=== PATIENT | male | born 1965 | race Caucasian/White ===

== ENCOUNTER 2018-03-10 08:58 | Emergency (ER) | payer MEDICARE, OTHER ==
[~2018-03-10] VITALS: Ht 167.6 cm; Wt 72.0 kg
[~2018-03-10 08:58] MED LIST: CEPH500C5 PO; MUPI1OIN8 BOTHNARES
[2018-03-10] MEDS ORDERED: doxycycline hyclate 100mg tablet.DR PO STA (09:33)
[2018-03-10] MEDS ORDERED: mupirocin 2% ointment 22GM TP STA (09:33)
[2018-03-10] MEDS ORDERED: DOXY100C43 PO (09:36)
[2018-03-10 09:53] VITALS: BP 120/78
== END 2018-03-10 10:05 | disposition home or self-care (01) ==
LOC: ER 08:59
DX: S00.412A Abrasion of left ear, initial encounter (principal); S00.31XA Abrasion of nose, initial encounter; S60.415A Abrasion of left ring finger, initial encounter; L02.811 Cutaneous abscess of head [any part, except face]; E11.9 Type 2 diabetes mellitus without complications; F15.10 Other stimulant abuse, uncomplicated; Z59.0 Homelessness; Z56.0 Unemployment, unspecified; Z79.899 Other long term (current) drug therapy; X58.XXXA Exposure to other specified factors, initial encounter; Y93.89 Activity, other specified; Y92.89 Other specified places as the place of occurrence of the external cause; Y99.8 Other external cause status
CPT/HCPCS: 99283

== ENCOUNTER 2018-08-12 09:35 | Emergency (ER) | payer MEDICARE, MEDICAID ==
[~2018-08-12] VITALS: Ht 162.6 cm; Wt 73.0 kg
[~2018-08-12 09:35] MED LIST changes: -CEPH500C5 PO
[2018-08-12 09:42] VITALS: BP 145/98
[2018-08-12] MEDS ORDERED: DOXY100C43 PO (09:55)
== END 2018-08-12 10:06 | disposition home or self-care (01) ==
LOC: ER 09:36
DX: H60.11 Cellulitis of right external ear (principal); E11.9 Type 2 diabetes mellitus without complications; F17.210 Nicotine dependence, cigarettes, uncomplicated; F15.90 Other stimulant use, unspecified, uncomplicated; Z59.0 Homelessness; Z56.0 Unemployment, unspecified; Z86.14 Personal history of Methicillin resistant Staphylococcus aureus infection; Z88.6 Allergy status to analgesic agent; Z79.899 Other long term (current) drug therapy
CPT/HCPCS: 99283

== ENCOUNTER 2018-09-06 11:40 | Emergency (ER) | payer MEDICARE, MEDICAID ==
[~2018-09-06] VITALS: Ht 177.8 cm; Wt 72.7 kg
[2018-09-06 11:53] VITALS: BP 144/90
[2018-09-06] MEDS ORDERED: SULF1TAB48 PO (12:26)
== END 2018-09-06 12:34 | disposition home or self-care (01) ==
LOC: ER 11:41
DX: L03.312 Cellulitis of back [any part except buttock and flank] (principal); H60.11 Cellulitis of right external ear; E11.9 Type 2 diabetes mellitus without complications; F15.90 Other stimulant use, unspecified, uncomplicated; Z86.14 Personal history of Methicillin resistant Staphylococcus aureus infection; Z59.0 Homelessness; Z56.0 Unemployment, unspecified; Z88.1 Allergy status to other antibiotic agents
CPT/HCPCS: 99283

== ENCOUNTER 2018-12-31 14:14 | Emergency (ER) | payer MEDICARE, MEDICAID ==
[~2018-12-31] VITALS: Ht 167.6 cm; Wt 70.3 kg
[2018-12-31 15:01] LABS: CLARITY,URINE CLEAR (Clear); COLOR,URINE YELLOW (Yellow); GLUCOSE, URINE NEGATIVE (Neg); KETONES,URINE TRACE mg/dl (Neg); LEUKOCYTE ESTERASE ,URINE NEGATIVE (Neg); NITRITES, URINE NEGATIVE (Neg); OCCULT BLOOD,URINE NEGATIVE (Neg); PROTEIN,URINE NEGATIVE (Neg); UROBILINOGEN,URINE 0.2 E.U/dL (0.2-1.0)
[2018-12-31 15:04] LABS: BASOPHILS % (AUTO) 0.2 % (0-1); EOSINOPHILS # (AUTO) 0.7 X10'3 (0-0.9); EOSINOPHILS % (AUTO) 5.4 % (0-6); HEMOGLOBIN 14.7 g/dl (14.0-17.9); LYMPHOCYTES # (AUTO) 1.9 X10'3 (1.1-4.8); LYMPHOCYTES % (AUTO) 15.2 % (21-51); MEAN CORPUSCULAR HEMOGLOBIN 29.3 PG (27.0-31.0); MEAN CORPUSCULAR HGB CONC 33.4 g/dL (33.0-36.5); MEAN CORPUSCULAR VOLUME 87.8 FL (78-98); MEAN PLATELET VOLUME 7.8 FL (7.4-10.4); MONOCYTES # (AUTO) 0.4 X10'3 (0-0.9); MONOCYTES % (AUTO) 3.5 % (2-12); NEUTROPHILS # (AUTO) 9.3 X10'3 (1.8-7.7); NEUTROPHILS % (AUTO) 75.7 % (42-75); PLATELET COUNT 325 X10'3 (140-440); RED BLOOD COUNT 5.02 X10'6 (4.70-6.10); RED CELL DISTRIBUTION WIDTH 13.8 % (11.5-14.5); WHITE BLOOD COUNT 12.3 X10'3 (4.5-11.0)
[2018-12-31 15:12] LABS: UA COLLECTION TYPE VOIDED
[2018-12-31 15:19] LABS: ALANINE AMINOTRANSFERASE 42 U/L (12-78); ALBUMIN 3.6 G/DL (3.4-5.0); ALBUMIN/GLOBULIN RATIO 0.9 (1.1-1.5); ALKALINE PHOSPHATASE 87 IU/L (46-116); ANION GAP 5 (8-16); ASPARTATE AMINO TRANSFERASE 18 U/L (10-37); BILIRUBIN,TOTAL 0.3 MG/DL (0.1-1.0); BLOOD UREA NITROGEN 16 MG/DL (7-18); BUN/CREATININE RATIO 16.2 (5.4-32.0); CALCIUM 8.8 MG/DL (8.5-10.1); CHLORIDE 103 MMOL/L (99-107); CREATININE 0.99 MG/DL (0.60-1.10); GLUCOSE 131 MG/DL (70-104); SODIUM 141 MMOL/L (135-145); TOTAL CARBON DIOXIDE 32.8 MMOL/L (24-32); TOTAL PROTEIN 7.5 G/DL (6.4-8.2); eGFR 78 ML/MIN
[2018-12-31 15:26] VITALS: BP 122/87
[2018-12-31] MEDS ORDERED: METR500T PO (17:09)
== END 2018-12-31 17:19 | disposition home or self-care (01) ==
LOC: ER 14:14
DX: K52.9 Noninfective gastroenteritis and colitis, unspecified (principal); R19.7 Diarrhea, unspecified; L08.9 Local infection of the skin and subcutaneous tissue, unspecified; E11.9 Type 2 diabetes mellitus without complications; Z86.14 Personal history of Methicillin resistant Staphylococcus aureus infection; F15.90 Other stimulant use, unspecified, uncomplicated; Z88.1 Allergy status to other antibiotic agents; Z79.899 Other long term (current) drug therapy; Z59.0 Homelessness; Z56.0 Unemployment, unspecified
CPT/HCPCS: 36415; 74176; 80053; 81003; 85025; 85610; 99284

== ENCOUNTER 2019-03-23 11:07 | Emergency (ER) | payer MEDICARE, MEDICAID ==
[~2019-03-23] VITALS: Ht 170.2 cm; Wt 75.0 kg
[2019-03-23 11:27] VITALS: BP 118/86
[2019-03-23] MEDS ORDERED: HYDR-4353 PO (12:23)
== END 2019-03-23 12:28 | disposition home or self-care (01) ==
LOC: ER 11:07
DX: S39.012A Strain of muscle, fascia and tendon of lower back, initial encounter (principal); E11.9 Type 2 diabetes mellitus without complications; F17.200 Nicotine dependence, unspecified, uncomplicated; F15.90 Other stimulant use, unspecified, uncomplicated; Z56.0 Unemployment, unspecified; Z59.0 Homelessness; Z88.8 Allergy status to other drugs, medicaments and biological substances; X50.0XXA Overexertion from strenuous movement or load, initial encounter; Y93.89 Activity, other specified; Y92.89 Other specified places as the place of occurrence of the external cause; Y99.8 Other external cause status
CPT/HCPCS: 99283

== ENCOUNTER 2019-12-19 11:39 | Emergency (ER) | payer MEDICARE, MEDICAID ==
[~2019-12-19] VITALS: Ht 167.6 cm; Wt 67.0 kg
[2019-12-19] MEDS ORDERED: DEXT15DR7 EACHEYE (12:22)
[2019-12-19 12:27] VITALS: BP 138/82
== END 2019-12-19 12:28 | disposition home or self-care (01) ==
LOC: ER 11:39
DX: S61.204A Unspecified open wound of right ring finger without damage to nail, initial encounter (principal); E11.9 Type 2 diabetes mellitus without complications; F32.9 Major depressive disorder, single episode, unspecified; F20.9 Schizophrenia, unspecified; F15.90 Other stimulant use, unspecified, uncomplicated; F10.99 Alcohol use, unspecified with unspecified alcohol-induced disorder; Z60.2 Problems related to living alone; Z56.0 Unemployment, unspecified; Z86.14 Personal history of Methicillin resistant Staphylococcus aureus infection; Z88.8 Allergy status to other drugs, medicaments and biological substances; Z79.899 Other long term (current) drug therapy; X50.1XXA Overexertion from prolonged static or awkward postures, initial encounter; Y93.89 Activity, other specified; Y92.89 Other specified places as the place of occurrence of the external cause; Y99.8 Other external cause status; Y90.9 Presence of alcohol in blood, level not specified
CPT/HCPCS: 99283

== ENCOUNTER 2020-05-26 12:14 | Emergency (ER) | payer MEDICAID, MEDICARE ==
[~2020-05-26] VITALS: Ht 167.6 cm; Wt 68.2 kg
[~2020-05-26 12:14] MED LIST changes: +DEXT15DR7 EACHEYE
[2020-05-26] MEDS ORDERED: normal saline 1000ML IV soln IVB ONE ×2 (14:40→15:35)
[2020-05-26 15:14] LABS: BASOPHILS # (AUTO) 0.1 X10'3 (0-0.2); BASOPHILS % (AUTO) 0.7 % (0-1); EOSINOPHILS # (AUTO) 0.2 X10'3 (0-0.9); EOSINOPHILS % (AUTO) 2.4 % (0-6); HEMATOCRIT 38.5 % (42.0-52.0); HEMOGLOBIN 12.9 g/dl (14.0-17.9); LYMPHOCYTES # (AUTO) 1.8 X10'3 (1.1-4.8); LYMPHOCYTES % (AUTO) 24.4 % (21-51); MEAN CORPUSCULAR HGB CONC 33.5 g/dL (33.0-36.5); MEAN CORPUSCULAR VOLUME 89.5 FL (78-98); MEAN PLATELET VOLUME 8.5 FL (7.4-10.4); MONOCYTES # (AUTO) 0.6 X10'3 (0-0.9); MONOCYTES % (AUTO) 7.8 % (2-12); NEUTROPHILS # (AUTO) 4.7 X10'3 (1.8-7.7); NEUTROPHILS % (AUTO) 64.7 % (42-75); PLATELET COUNT 234 X10'3 (140-440); RED CELL DISTRIBUTION WIDTH 12.9 % (11.5-14.5); WHITE BLOOD COUNT 7.2 X10'3 (4.5-11.0)
[2020-05-26] MEDS ORDERED: polyethylene glycol 3350 17gm powd pack PO STA (15:28)
[2020-05-26 15:30] LABS: ALANINE AMINOTRANSFERASE 23 U/L (12-78); ALBUMIN 3.2 G/DL (3.4-5.0); ALKALINE PHOSPHATASE 51 IU/L (46-116); ANION GAP 7 (8-16); ASPARTATE AMINO TRANSFERASE 22 U/L (10-37); BILIRUBIN,TOTAL 0.3 MG/DL (0.1-1.0); BLOOD UREA NITROGEN 23 MG/DL (7-18); BUN/CREATININE RATIO 29.5 (5.4-32.0); CALCIUM 8.8 MG/DL (8.5-10.1); CHLORIDE 108 MMOL/L (99-107); CREATININE 0.78 MG/DL (0.60-1.10); GLUCOSE 88 MG/DL (70-104); POTASSIUM 3.9 MMOL/L (3.5-5.1); SODIUM 143 MMOL/L (135-145); TOTAL CARBON DIOXIDE 27.8 MMOL/L (24-32); TOTAL PROTEIN 6.4 G/DL (6.4-8.2); eGFR > 90 ML/MIN
[2020-05-26] MEDS ORDERED: docusate sod 100mg capsule PO ONE (15:30)
[2020-05-26 15:43] LABS: CLARITY,URINE CLEAR (Clear); COLOR,URINE YELLOW (Yellow); GLUCOSE, URINE NEGATIVE (Neg); KETONES,URINE NEGATIVE (Neg); LEUKOCYTE ESTERASE ,URINE NEGATIVE (Neg); NITRITES, URINE NEGATIVE (Neg); OCCULT BLOOD,URINE NEGATIVE (Neg); PH,URINE 5.5 (4.8-8.0); PROTEIN,URINE NEGATIVE (Neg); UA COLLECTION TYPE URINAL; UROBILINOGEN,URINE 0.2 E.U/dL (0.2-1.0)
[2020-05-26] MEDS ORDERED: NALO4SPR NS (16:19)
[2020-05-26] MEDS ORDERED: DOCU100C40 PO (16:19)
[2020-05-26] MEDS ORDERED: POLY17PO10 PO (16:19)
[2020-05-26 16:30] VITALS: BP 118/76
== END 2020-05-26 16:31 | disposition home or self-care (01) ==
LOC: ER 12:15
DX: K59.00 Constipation, unspecified (principal); E11.9 Type 2 diabetes mellitus without complications; F32.9 Major depressive disorder, single episode, unspecified; F15.90 Other stimulant use, unspecified, uncomplicated; F11.90 Opioid use, unspecified, uncomplicated; F17.200 Nicotine dependence, unspecified, uncomplicated; Z86.14 Personal history of Methicillin resistant Staphylococcus aureus infection; Z56.0 Unemployment, unspecified; Z59.0 Homelessness; Z88.8 Allergy status to other drugs, medicaments and biological substances; Z79.899 Other long term (current) drug therapy
CPT/HCPCS: 36415; 74176; 80053; 81003; 85025; 99284; J7030

== ENCOUNTER 2020-09-04 16:13 | Emergency (ER) | payer MEDICARE, OTHER ==
[~2020-09-04] VITALS: Ht 167.6 cm; Wt 68.2 kg
[~2020-09-04 16:13] MED LIST changes: +DOCU100C40 PO; +NALO4SPR NS
[2020-09-04 16:19] VITALS: BP 146/92
[2020-09-04] MEDS ORDERED: SULF1TAB49 PO (16:32)
[2020-09-04] MEDS ORDERED: CEPH500C5 PO (16:32)
== END 2020-09-04 16:41 | disposition home or self-care (01) ==
LOC: ER 16:15
DX: S80.811A Abrasion, right lower leg, initial encounter (principal); L02.415 Cutaneous abscess of right lower limb; E11.9 Type 2 diabetes mellitus without complications; F32.9 Major depressive disorder, single episode, unspecified; F20.9 Schizophrenia, unspecified; F15.90 Other stimulant use, unspecified, uncomplicated; F11.90 Opioid use, unspecified, uncomplicated; Z86.14 Personal history of Methicillin resistant Staphylococcus aureus infection; Z60.2 Problems related to living alone; Z59.0 Homelessness; Z56.0 Unemployment, unspecified; Z88.8 Allergy status to other drugs, medicaments and biological substances; Z79.899 Other long term (current) drug therapy; X58.XXXA Exposure to other specified factors, initial encounter; Y93.89 Activity, other specified; Y92.89 Other specified places as the place of occurrence of the external cause; Y99.8 Other external cause status
CPT/HCPCS: 99283

== ENCOUNTER 2021-05-12 09:48 | Emergency (ER) | payer OTHER ==
[~2021-05-12] VITALS: Ht 172.7 cm; Wt 142.7 kg
[2021-05-12 09:58] VITALS: BP 162/99
== END 2021-05-12 10:41 | disposition home or self-care (01) ==
LOC: ER 09:50
DX: N48.1 Balanitis (principal); E11.9 Type 2 diabetes mellitus without complications; F15.90 Other stimulant use, unspecified, uncomplicated; Z86.14 Personal history of Methicillin resistant Staphylococcus aureus infection; Z88.8 Allergy status to other drugs, medicaments and biological substances; Z79.899 Other long term (current) drug therapy; Z59.0 Homelessness; Z56.0 Unemployment, unspecified; Z72.89 Other problems related to lifestyle
CPT/HCPCS: 99281

== ENCOUNTER 2021-07-12 10:22 | Emergency (ER) | payer OTHER ==
[~2021-07-12] VITALS: Ht 172.7 cm; Wt 77.4 kg
[2021-07-12 10:39] VITALS: BP 148/98
[2021-07-12] MEDS ORDERED: PRED20TA PO (10:54)
[2021-07-12] MEDS ORDERED: DIPH25TA62 PO (10:54)
[2021-07-12] MEDS ORDERED: diphenhydrAMINE 25mg capsule PO ONE (10:55)
[2021-07-12] MEDS ORDERED: predniSONE 20 mg tablet PO ONE (10:55)
== END 2021-07-12 11:14 | disposition home or self-care (01) ==
LOC: ER 10:22
DX: T63.441A Toxic effect of venom of bees, accidental (unintentional), initial encounter (principal); E11.9 Type 2 diabetes mellitus without complications; F32.9 Major depressive disorder, single episode, unspecified; F20.9 Schizophrenia, unspecified; F15.90 Other stimulant use, unspecified, uncomplicated; F11.90 Opioid use, unspecified, uncomplicated; Z86.14 Personal history of Methicillin resistant Staphylococcus aureus infection; Z72.89 Other problems related to lifestyle; Z60.2 Problems related to living alone; Z56.0 Unemployment, unspecified; Z59.0 Homelessness; Z88.1 Allergy status to other antibiotic agents; Z79.899 Other long term (current) drug therapy; Y92.89 Other specified places as the place of occurrence of the external cause
CPT/HCPCS: 99283; J7512; Q0163

== ENCOUNTER 2021-08-03 09:16 | Emergency (ER) | payer OTHER ==
[~2021-08-03] VITALS: Ht 170.2 cm; Wt 68.2 kg
[~2021-08-03 09:16] MED LIST changes: +DIPH25TA62 PO
[2021-08-03 09:43] VITALS: BP 155/95
[2021-08-03] MEDS ORDERED: AMOX-422 PO (09:47)
[2021-08-03] MEDS ORDERED: IBUP-1984 PO (09:47)
== END 2021-08-03 09:54 | disposition home or self-care (01) ==
LOC: ER 09:17
DX: H66.91 Otitis media, unspecified, right ear (principal); E11.9 Type 2 diabetes mellitus without complications; F15.90 Other stimulant use, unspecified, uncomplicated; Z86.14 Personal history of Methicillin resistant Staphylococcus aureus infection; Z72.89 Other problems related to lifestyle; Z56.0 Unemployment, unspecified; Z59.0 Homelessness; Z88.8 Allergy status to other drugs, medicaments and biological substances; Z79.2 Long term (current) use of antibiotics; Z79.899 Other long term (current) drug therapy
CPT/HCPCS: 99283

== ENCOUNTER 2022-01-27 11:36 | Inpatient (IN) | payer OTHER ==
[~2022-01-27] VITALS: Ht 177.8 cm; Wt 77.3 kg
[2022-01-27] MEDS ORDERED: CefTRIAXone 2gm/D5W 50ml BAG 50 ML IV ONE (11:55)
[2022-01-27 12:49] LABS: ALANINE AMINOTRANSFERASE 29 U/L (12-78); ALBUMIN 3.1 G/DL (3.4-5.0); ALBUMIN/GLOBULIN RATIO 0.8 (1.1-1.5); ALKALINE PHOSPHATASE 60 IU/L (46-116); ANION GAP 6 (8-16); ASPARTATE AMINO TRANSFERASE 20 U/L (10-37); BILIRUBIN,TOTAL 0.3 MG/DL (0.1-1.0); BLOOD UREA NITROGEN 38 MG/DL (7-18); BUN/CREATININE RATIO 31.1 (5.4-32.0); CALCIUM 9.3 MG/DL (8.5-10.1); CHLORIDE 104 MMOL/L (99-107); CREATININE 1.22 MG/DL (0.60-1.10); GLUCOSE 250 MG/DL (70-104); MAGNESIUM 1.8 MG/DL (1.5-2.4); POTASSIUM 4.7 MMOL/L (3.5-5.1); SODIUM 139 MMOL/L (135-145); TOTAL CARBON DIOXIDE 28.6 MMOL/L (24-32); TOTAL PROTEIN 7.1 G/DL (6.4-8.2); eGFR 61 ML/MIN
[2022-01-27 12:50] LABS: ETHANOL < 0.010 GM/DL (0.0-0.010)
[2022-01-27 12:51] LABS: HEMOGLOBIN 13.7 g/dl (14.0-17.9)
[2022-01-27 12:52] LABS: HEMATOCRIT 41.7 % (42.0-52.0); MEAN CORPUSCULAR HEMOGLOBIN 27.1 PG (27.0-31.0); MEAN CORPUSCULAR HGB CONC 32.8 g/dL (33.0-36.5); MEAN CORPUSCULAR VOLUME 82.7 FL (78-98); MEAN PLATELET VOLUME 7.8 FL (7.4-10.4); PLATELET COUNT 346 X10'3 (140-440); RED BLOOD COUNT 5.04 X10'6 (4.70-6.10); RED CELL DISTRIBUTION WIDTH 14.5 % (11.5-14.5); WHITE BLOOD COUNT 2.8 X10'3 (4.5-11.0)
[2022-01-27 13:18] LABS: TOTAL CELLS COUNTED 100
[2022-01-27 13:19] LABS: PLATELET ESTIMATE NORMAL
[2022-01-27 13:20] LABS: GIANT PLATELET FEW
[2022-01-27 13:37] LABS: ABG BASE EXCESS -0.2 mmol/L (-2.0-2.0); ABG HCO3 25.9 mmol/L (22.0-26.0); ABG OXYGEN SATURATION 95.4 % (94-97); ABG PCO2 (T) 47.6 mmHg (35.0-48.0); ABG PO2 (T) 81.7 mmHg (75.0-100.0); ALLEN'S TEST Modified; FCOHb 1.2 % (0.0-3.9); FLOW 15 L/min; FMetHb 0.2 % (0.0-1.5); FO2Hb 94.1 % (94-97); TOTAL HEMOGLOBIN 13.8 G/dl (14.0-18.0)
[2022-01-27] MEDS ORDERED: normal saline 1000ML IV soln IV ONE (13:50)
[2022-01-27] MEDS ORDERED: potassium CL 10mEq/100ml bag 100 ML IV PRN (14:25)
[2022-01-27] MEDS ORDERED: ondansetron/PF 4mg/2ml inj IV PRN (14:25)
[2022-01-27] MEDS ORDERED: magnesium 4gm in 100ml NS 100 ML IV PRN (14:25)
[2022-01-27] MEDS ORDERED: potassium Cl 20 mEq SR tablet PO PRN ×2 (14:25)
[2022-01-27] MEDS ORDERED: magnesium 2GM in 50ml NS 50 ML IV PRN (14:25)
[2022-01-27] MEDS: normal saline 1000ml 1,000 ML IV SCH (14:25)
[2022-01-27] MEDS ORDERED: magnesium Cl slow-release 64mg tablet PO PRN (14:25)
[2022-01-27] MEDS ORDERED: acetaminophen 325mg tablet PO PRN ×2 (14:25)
[2022-01-27 15:48] LABS: URINE AMPHETAMINE SCREEN POSITIVE (Neg); URINE BARBITUATE SCREEN NEGATIVE (Neg); URINE BENZODIAZEPINES SCREEN NEGATIVE (Neg); URINE CANNABINOID SCREEN NEGATIVE (Neg); URINE COCAINE SCREEN NEGATIVE (Neg); URINE METHADONE SCREEN NEGATIVE (Neg); URINE OPIATE SCREEN NEGATIVE (Neg); URINE PHENCYCLIDINE SCREEN NEGATIVE (Neg)
[2022-01-27] MEDS ORDERED: NO HOME MEDS (15:51)
[2022-01-27 15:53] LABS: CLARITY,URINE CLEAR (Clear); COLOR,URINE YELLOW (Yellow); GLUCOSE, URINE 250 mg/dl (Neg); KETONES,URINE NEGATIVE (Neg); LEUKOCYTE ESTERASE ,URINE NEGATIVE (Neg); NITRITES, URINE NEGATIVE (Neg); OCCULT BLOOD,URINE NEGATIVE (Neg); PROTEIN,URINE NEGATIVE (Neg); UA COLLECTION TYPE URINAL; UROBILINOGEN,URINE 0.2 E.U/dL (0.2-1.0)
[2022-01-27] MEDS ORDERED: MESSAGE TO PHARMACY PO ONE (17:20)
[2022-01-27] MEDS ORDERED: dextrose 50%-water 50ml dispensing syringe IV PRN ×2 (17:20)
[2022-01-27] MEDS ORDERED: DEXTROSE 15 GM of carb/4 tabs (each vial/BOTTLE has 4 tablets) PO PRN ×2 (17:20)
[2022-01-27] MEDS ORDERED: glucagon, human recombinant 1mg kit SUBCUT PRN (17:20)
[2022-01-27] MEDS ORDERED: insulin Lispro (HumaLOG) vial - multi-dose SQ SCH (17:20)
[2022-01-27] MEDS: K and/or MAG REPLACEMENT MC SCH (20:00)
--- NOTE | 2022-01-27 20:08 | NUR ---
Patient continues to remove oxygen saturation probe and nasal cannula. Patient desat's into the low 80's when off. Patient has been continually reminded to keep both pieces of equipment on.
[2022-01-27 21:00] VITALS: BP 124/79
[2022-01-27] MEDS ORDERED: temazepam 15mg capsule PO PRN (21:00)
[2022-01-27] MEDS: insulin glargine (Lantus) pen - multi-dose SQ SCH (21:00)
--- NOTE | 2022-01-27 21:01 | NUR ---
Received report from NATHAN Hopson. Patient arrived to unit with lose change, and a card, not credit. Pants, to shirts, and socks. Patient walked from [facility] to bed
[2022-01-27] MEDS: heparin, porcine 5000 units/ml vial SQ SCH (21:17)
[2022-01-28 00:22] VITALS: BP 125/67
--- NOTE | 2022-01-28 06:30 | NUR ---
Patient in room [facility]. I have received report from NATHAN Harley and had the opportunity to ask questions and assume patient care.
--- NOTE | 2022-01-28 06:31 | NUR ---
I agree with Travel nurse Ramila charting, and report given to Shobha
[2022-01-28 06:37] LABS: BASOPHILS % (AUTO) 0.2 % (0-1); EOSINOPHILS % (AUTO) 0.3 % (0-6); HEMATOCRIT 34.3 % (42.0-52.0); HEMOGLOBIN 11.3 g/dl (14.0-17.9); LYMPHOCYTES # (AUTO) 1.1 X10'3 (1.1-4.8); LYMPHOCYTES % (AUTO) 7.8 % (21-51); MEAN CORPUSCULAR HGB CONC 32.9 g/dL (33.0-36.5); MEAN CORPUSCULAR VOLUME 82.1 FL (78-98); MEAN PLATELET VOLUME 8.1 FL (7.4-10.4); MONOCYTES # (AUTO) 0.5 X10'3 (0-0.9); MONOCYTES % (AUTO) 3.2 % (2-12); NEUTROPHILS # (AUTO) 12.7 X10'3 (1.8-7.7); NEUTROPHILS % (AUTO) 88.5 % (42-75); PLATELET COUNT 277 X10'3 (140-440); RED BLOOD COUNT 4.18 X10'6 (4.70-6.10); RED CELL DISTRIBUTION WIDTH 14.4 % (11.5-14.5); WHITE BLOOD COUNT 14.3 X10'3 (4.5-11.0)
[2022-01-28 07:00] VITALS: BP 133/68
[2022-01-28 07:16] LABS: ALANINE AMINOTRANSFERASE 25 U/L (12-78); ALBUMIN 2.5 G/DL (3.4-5.0); ALBUMIN/GLOBULIN RATIO 0.6 (1.1-1.5); ALKALINE PHOSPHATASE 42 IU/L (46-116); ANION GAP 9 (8-16); ASPARTATE AMINO TRANSFERASE 34 U/L (10-37); BILIRUBIN,TOTAL 0.6 MG/DL (0.1-1.0); BLOOD UREA NITROGEN 23 MG/DL (7-18); BUN/CREATININE RATIO 26.1 (5.4-32.0); CALCIUM 8.6 MG/DL (8.5-10.1); CHLORIDE 105 MMOL/L (99-107); CREATININE 0.88 MG/DL (0.60-1.10); GLUCOSE 116 MG/DL (70-104); POTASSIUM 3.9 MMOL/L (3.5-5.1); SODIUM 138 MMOL/L (135-145); TOTAL CARBON DIOXIDE 23.8 MMOL/L (24-32); TOTAL PROTEIN 6.9 G/DL (6.4-8.2); eGFR 89 ML/MIN
[2022-01-28] MEDS: azithromycin/NS 500mg/250ml 250 ML IV SCH (07:27)
[2022-01-28] MEDS: heparin, porcine 5000 units/ml vial SQ SCH ×2 (07:27→21:23)
[2022-01-28] MEDS: CefTRIAXone 2gm/D5W 50ml BAG 50 ML IV SCH (07:27)
[2022-01-28] MEDS: K and/or MAG REPLACEMENT MC SCH ×2 (08:00→20:00)
[2022-01-28] MEDS: normal saline 1000ml 1,000 ML IV SCH (10:25)
[2022-01-28] MEDS: VANCOMYCIN 1GM/200ML IVPB 200 ML IV SCH ×2 (10:40→21:23)
--- NOTE | 2022-01-28 11:21 | NUR ---
Cardiac consult: Likely intended to be DM consult given no significant cardiac PMH though pt with T2DM which is well controlled with A1c 7.0%. Per physical assessment pt confused and A/O x 3 and a poor historian per H&P. Pt sleeping upon RD arrival. Written DM education with RD contact information placed in patient's chart. Will remain available. Addendum: 01/28/22 at [address] Amended: Links added.
[2022-01-28 12:00] VITALS: BP 122/72
[2022-01-28] MEDS ORDERED: pneumococcal 23-VAL P-sac vacc 25 mcg/0.5ml vial IMVAC ONE (13:20)
[2022-01-28] MEDS ORDERED: FLU VACC QS2021-22(6MOS UP)/PF 60 MCG/0.5 ML SYRINGE IM ONE (13:25)
[2022-01-28] MEDS ORDERED: COVID-19 VAC, TRIS(PFIZER)/PF 30 MCG/0.3 ML VIAL IMVAC ONE (13:50)
[2022-01-28 18:00] VITALS: BP 127/91
--- NOTE | 2022-01-28 18:26 | NUR ---
Problems reprioritized. Patient report given, questions answered & plan of care reviewed with NATHAN EdwardsT.
--- NOTE | 2022-01-28 18:50 | NUR ---
Patient in room [facility]. I have received report from NATHAN Yeager and had the opportunity to ask questions and assume patient care.
[2022-01-28] MEDS: insulin glargine (Lantus) pen - multi-dose SQ SCH (21:00)
[2022-01-29 00:02] VITALS: BP 163/99
[2022-01-29] MEDS: normal saline 1000ml 1,000 ML IV SCH (01:47)
[2022-01-29 06:16] LABS: BASOPHILS % (AUTO) 0.2 % (0-1); EOSINOPHILS # (AUTO) 0.2 X10'3 (0-0.9); EOSINOPHILS % (AUTO) 1.2 % (0-6); HEMATOCRIT 32.6 % (42.0-52.0); HEMOGLOBIN 10.7 g/dl (14.0-17.9); LYMPHOCYTES # (AUTO) 1.3 X10'3 (1.1-4.8); LYMPHOCYTES % (AUTO) 7.3 % (21-51); MEAN CORPUSCULAR HEMOGLOBIN 26.9 PG (27.0-31.0); MEAN CORPUSCULAR HGB CONC 32.9 g/dL (33.0-36.5); MEAN CORPUSCULAR VOLUME 81.5 FL (78-98); MONOCYTES # (AUTO) 0.6 X10'3 (0-0.9); MONOCYTES % (AUTO) 3.4 % (2-12); NEUTROPHILS # (AUTO) 15.2 X10'3 (1.8-7.7); NEUTROPHILS % (AUTO) 87.9 % (42-75); PLATELET COUNT 271 X10'3 (140-440); RED BLOOD COUNT 3.99 X10'6 (4.70-6.10); RED CELL DISTRIBUTION WIDTH 14.4 % (11.5-14.5); WHITE BLOOD COUNT 17.3 X10'3 (4.5-11.0)
--- NOTE | 2022-01-29 06:21 | NUR ---
Problems reprioritized. Patient report given, questions answered & plan of care reviewed with NATHAN Hernandez.
[2022-01-29 06:36] LABS: ALANINE AMINOTRANSFERASE 23 U/L (12-78); ALBUMIN 2.4 G/DL (3.4-5.0); ALBUMIN/GLOBULIN RATIO 0.5 (1.1-1.5); ALKALINE PHOSPHATASE 54 IU/L (46-116); ANION GAP 9 (8-16); ASPARTATE AMINO TRANSFERASE 34 U/L (10-37); BILIRUBIN,TOTAL 0.4 MG/DL (0.1-1.0); BLOOD UREA NITROGEN 15 MG/DL (7-18); BUN/CREATININE RATIO 19.5 (5.4-32.0); CALCIUM 8.4 MG/DL (8.5-10.1); CHLORIDE 103 MMOL/L (99-107); CREATININE 0.77 MG/DL (0.60-1.10); GLUCOSE 103 MG/DL (70-104); SODIUM 137 MMOL/L (135-145); TOTAL CARBON DIOXIDE 25.3 MMOL/L (24-32); TOTAL PROTEIN 7.1 G/DL (6.4-8.2); eGFR > 90 ML/MIN
[2022-01-29 06:37] LABS: POTASSIUM 3.7 MMOL/L (3.5-5.1)
[2022-01-29] MEDS: heparin, porcine 5000 units/ml vial SQ SCH ×2 (07:16→20:51)
[2022-01-29] MEDS: azithromycin/NS 500mg/250ml 250 ML IV SCH (07:16)
[2022-01-29] MEDS: K and/or MAG REPLACEMENT MC SCH ×2 (07:21→20:00)
[2022-01-29 08:00] VITALS: BP 166/95
[2022-01-29] MEDS: CefTRIAXone 2gm/D5W 50ml BAG 50 ML IV SCH (08:00)
[2022-01-29] MEDS: VANCOMYCIN 1GM/200ML IVPB 200 ML IV SCH ×2 (10:52→21:50)
--- NOTE | 2022-01-29 11:06 | NUR ---
PAGER ID: [phone] MESSAGE: REKHA RE:Sharon/FADI PATIENT B/P IS 195/101, 193/98 AND I TOOK IT MANUAL IT IS 190/92. DENIED PAIN, NO DITRESS/SOB NATHAN KOTHARI
[2022-01-29] MEDS ORDERED: hydrALAZINE 20mg/ml inj. IV ONE ×2 (11:30→23:00)
--- NOTE | 2022-01-29 11:30 | NUR ---
HI B/P,ORDER RECEIVED FOR HYDRALAZINE 10MG IV. MED ADMINISTERED PRESCRIBED.
[2022-01-29 12:21] VITALS: BP 160/82
--- NOTE | 2022-01-29 15:29 | NUR ---
PATIENT IS POSITIVE FOR MRSA (NARES). notified
--- NOTE | 2022-01-29 18:15 | NUR ---
Patient in room [facility]. I have received report from NATHAN Stauffer and had the opportunity to ask questions and assume patient care.
--- NOTE | 2022-01-29 18:29 | NUR ---
óscar reprioritized. Patient report given, questions answered & plan of care reviewed with VINNIE EVANS.
[2022-01-29 20:00] VITALS: BP_SYST 147; BP_SYST 150; BP_DIAS 93; BP_DIAS 95
[2022-01-29] MEDS: metoprolol tartrate 12.5mg (1/2 tablet) PO SCH (20:50)
[2022-01-29] MEDS: insulin glargine (Lantus) pen - multi-dose SQ SCH (21:00)
[2022-01-29] MEDS ORDERED: VANCOMYCIN LEVEL IV ONE (21:30)
[2022-01-30] VITALS: BP 175/91
[2022-01-30] MEDS: normal saline 1000ml 1,000 ML IV SCH (01:25)
[2022-01-30 06:10] LABS: ALANINE AMINOTRANSFERASE 21 U/L (12-78); ALBUMIN 2.3 G/DL (3.4-5.0); ALBUMIN/GLOBULIN RATIO 0.5 (1.1-1.5); ALKALINE PHOSPHATASE 56 IU/L (46-116); ANION GAP 9 (8-16); ASPARTATE AMINO TRANSFERASE 20 U/L (10-37); BILIRUBIN,TOTAL 0.3 MG/DL (0.1-1.0); BLOOD UREA NITROGEN 16 MG/DL (7-18); BUN/CREATININE RATIO 20.5 (5.4-32.0); CALCIUM 8.1 MG/DL (8.5-10.1); CHLORIDE 106 MMOL/L (99-107); CREATININE 0.78 MG/DL (0.60-1.10); GLUCOSE 109 MG/DL (70-104); POTASSIUM 3.6 MMOL/L (3.5-5.1); SODIUM 139 MMOL/L (135-145); TOTAL CARBON DIOXIDE 23.7 MMOL/L (24-32); TOTAL PROTEIN 6.6 G/DL (6.4-8.2); eGFR > 90 ML/MIN
--- NOTE | 2022-01-30 06:46 | NUR ---
Problems reprioritized. Patient report given, questions answered & plan of care reviewed with NATHAN Patel.
[2022-01-30 07:46] LABS: BASOPHILS % (AUTO) 0.3 % (0-1); EOSINOPHILS # (AUTO) 0.2 X10'3 (0-0.9); EOSINOPHILS % (AUTO) 1.3 % (0-6); HEMATOCRIT 33.5 % (42.0-52.0); HEMOGLOBIN 11.4 g/dl (14.0-17.9); LYMPHOCYTES % (AUTO) 8.1 % (21-51); MEAN CORPUSCULAR HEMOGLOBIN 27.3 PG (27.0-31.0); MEAN CORPUSCULAR HGB CONC 34.1 g/dL (33.0-36.5); MEAN CORPUSCULAR VOLUME 80.2 FL (78-98); MEAN PLATELET VOLUME 7.8 FL (7.4-10.4); MONOCYTES # (AUTO) 0.6 X10'3 (0-0.9); MONOCYTES % (AUTO) 4.7 % (2-12); NEUTROPHILS % (AUTO) 85.6 % (42-75); PLATELET COUNT 307 X10'3 (140-440); RED BLOOD COUNT 4.18 X10'6 (4.70-6.10); RED CELL DISTRIBUTION WIDTH 13.7 % (11.5-14.5); WHITE BLOOD COUNT 12.9 X10'3 (4.5-11.0)
[2022-01-30 08:00] VITALS: BP 165/94
[2022-01-30] MEDS: CefTRIAXone 2gm/D5W 50ml BAG 50 ML IV SCH (08:00)
[2022-01-30] MEDS: K and/or MAG REPLACEMENT MC SCH (08:00)
[2022-01-30] MEDS: metoprolol tartrate 12.5mg (1/2 tablet) PO SCH (08:01)
[2022-01-30] MEDS: heparin, porcine 5000 units/ml vial SQ SCH (08:03)
[2022-01-30] MEDS: azithromycin/NS 500mg/250ml 250 ML IV SCH (09:15)
[2022-01-30] MEDS ORDERED: iohexol 350MG/ML 100ml bottle IV ONE (10:31)
[2022-01-30 11:00] VITALS: BP 156/89
[2022-01-30] MEDS: VANCOMYCIN 1GM/200ML IVPB 200 ML IV SCH (11:12)
[2022-01-30] MEDS ORDERED: PRED20TA PO (12:49)
[2022-01-30] MEDS ORDERED: LOP12.5T PO (12:49)
[2022-01-30] MEDS ORDERED: LEVO500T90 PO (12:49)
[2022-01-30] MEDS ORDERED: METF-436 PO (12:49)
[2022-01-30] MEDS ORDERED: ALBU8HFA PO (12:49)
--- NOTE | 2022-01-30 13:20 | NUR ---
Patient discharged. Homeless, given bus pass and states he will hop picker perscriptions at pharmacy and will follow up with pcp. All belongings taken, patient unable to find shoes, he may not have come in with them, i am unsure at this time. Patient walked to front door for discharge and released. He was alert, oriented and appropriate at time of discharge and on room air with no distress. Patient states understanding of all discharge information. No meds in pharmacy. Addendum: 01/30/22 at 1412 by Amanda Read RN, RN and 2x iv's removed.
[2022-01-30] MEDS ORDERED: VANCOmycin 1250MG/NS 250ml Bag 250 ML IV SCH (23:00)
[2022-02-01] MEDS ORDERED: VANCOMYCIN LEVEL IV ONE (10:30)
== END 2022-01-30 13:20 | disposition home or self-care (01) | DRG 871 ==
LOC: ER 11:37 → ED HOLD 14:33 → EDBEDREQ 19:55 → SUR 3N 20:40
PROVIDERS: ADMIT Internal Medicine; ATTEND Internal Medicine
PROC: B32T1ZZ Computerized Tomography (CT Scan) of Left Pulmonary Artery using Low Osmolar Contrast (ICD-10-PCS; principal; 2022-01-30)
PROC: B3201ZZ Computerized Tomography (CT Scan) of Thoracic Aorta using Low Osmolar Contrast (ICD-10-PCS; 2022-01-30)
PROC: B32S1ZZ Computerized Tomography (CT Scan) of Right Pulmonary Artery using Low Osmolar Contrast (ICD-10-PCS; 2022-01-30)
DX: A41.9 Sepsis, unspecified organism (principal); J18.9 Pneumonia, unspecified organism; J96.00 Acute respiratory failure, unspecified whether with hypoxia or hypercapnia; F15.10 Other stimulant abuse, uncomplicated; E11.9 Type 2 diabetes mellitus without complications; I10 Essential (primary) hypertension; Z20.822 Contact with and (suspected) exposure to COVID-19; F20.9 Schizophrenia, unspecified; F32.A Depression, unspecified; Z86.14 Personal history of Methicillin resistant Staphylococcus aureus infection; Z59.00 Homelessness unspecified; Z88.8 Allergy status to other drugs, medicaments and biological substances; Z56.0 Unemployment, unspecified
CPT/HCPCS: 36415; 36600; 71045; 71275; 80053; 80202; 80305; 80320; 81003; 82803; 82948; 83036; 83605; 83735; 84145; 85007; 85018; 85025; 87040; 87077; 87081; 87186; 87635; 90732; 93005; 93306; 96361; 96365; 99285; C9803; G0378; J0360; J0456; J0696; J1644; J1815; J3370; J7030; Q9967

== ENCOUNTER 2022-03-28 06:26 | Emergency (ER) | payer MEDICARE, OTHER ==
[~2022-03-28] VITALS: Ht 177.8 cm; Wt 77.1 kg
[~2022-03-28 06:26] MED LIST changes: -DEXT15DR7 EACHEYE; -DIPH25TA62 PO; -DOCU100C40 PO; +LOP12.5T PO; +METF-436 PO; -MUPI1OIN8 BOTHNARES; -NALO4SPR NS
[2022-03-28 06:51] VITALS: BP 140/103
[2022-03-28] MEDS ORDERED: cyclobenzaprine 10mg tablet PO ONE (07:25)
[2022-03-28] MEDS ORDERED: ibuprofen tablet 400 MG TABLET PO ONE (07:25)
--- NOTE | 2022-03-28 08:04 | NUR ---
Patient given cup of coffee on discharge.
== END 2022-03-28 08:04 | disposition home or self-care (01) ==
LOC: ER 06:26
DX: M79.672 Pain in left foot (principal); M62.838 Other muscle spasm; E11.9 Type 2 diabetes mellitus without complications; F15.90 Other stimulant use, unspecified, uncomplicated; F11.90 Opioid use, unspecified, uncomplicated; Z56.0 Unemployment, unspecified; Z86.14 Personal history of Methicillin resistant Staphylococcus aureus infection; Z59.00 Homelessness unspecified; Z72.89 Other problems related to lifestyle; Z88.8 Allergy status to other drugs, medicaments and biological substances; Z79.899 Other long term (current) drug therapy
CPT/HCPCS: 99283

== ENCOUNTER 2022-03-29 09:50 | Emergency (ER) | payer MEDICARE ==
[~2022-03-29] VITALS: Ht 175.3 cm; Wt 81.4 kg
[2022-03-29 10:09] VITALS: BP 158/114
[2022-03-29] MEDS ORDERED: ibuprofen tablet 400 MG TABLET PO ONE (12:45)
== END 2022-03-29 13:31 | disposition home or self-care (01) ==
LOC: ER 09:50
DX: M79.605 Pain in left leg (principal); E11.9 Type 2 diabetes mellitus without complications; Z86.14 Personal history of Methicillin resistant Staphylococcus aureus infection; F15.90 Other stimulant use, unspecified, uncomplicated; F11.90 Opioid use, unspecified, uncomplicated; Z56.0 Unemployment, unspecified; Z59.00 Homelessness unspecified; Z72.89 Other problems related to lifestyle
CPT/HCPCS: 99282

== ENCOUNTER 2022-04-14 06:53 | Emergency (ER) | payer MEDICARE ==
[~2022-04-14] VITALS: Ht 177.8 cm; Wt 75.6 kg
[2022-04-14 06:57] VITALS: BP 174/104
[2022-04-14] MEDS ORDERED: NEOM10DR45 LEFT EAR (07:19)
[2022-04-14] MEDS ORDERED: IBUP-1986 PO (07:19)
== END 2022-04-14 08:11 | disposition home or self-care (01) ==
LOC: ER 06:53
DX: H60.92 Unspecified otitis externa, left ear (principal); G89.29 Other chronic pain; M25.552 Pain in left hip; E11.9 Type 2 diabetes mellitus without complications; F15.90 Other stimulant use, unspecified, uncomplicated; F11.90 Opioid use, unspecified, uncomplicated; F17.210 Nicotine dependence, cigarettes, uncomplicated; Z56.0 Unemployment, unspecified; Z59.00 Homelessness unspecified; Z72.89 Other problems related to lifestyle; Z88.8 Allergy status to other drugs, medicaments and biological substances; Z79.2 Long term (current) use of antibiotics; Z79.899 Other long term (current) drug therapy
CPT/HCPCS: 99283

== ENCOUNTER 2022-04-20 23:02 | Emergency (ER) | payer MEDICARE ==
[~2022-04-20] VITALS: Ht 177.8 cm; Wt 68.2 kg
[~2022-04-20 23:02] MED LIST changes: +IBUP-1986 PO; +NEOM10DR45 LEFT EAR
[2022-04-20 23:32] VITALS: BP 159/102
[2022-04-20] MEDS ORDERED: ibuprofen tablet 400 MG TABLET PO ONE (23:50)
[2022-04-20] MEDS ORDERED: cyclobenzaprine 10mg tablet PO ONE (23:50)
== END 2022-04-21 00:29 | disposition home or self-care (01) ==
LOC: ER 23:03
DX: M54.9 Dorsalgia, unspecified (principal); E11.9 Type 2 diabetes mellitus without complications; G89.29 Other chronic pain; F32.9 Major depressive disorder, single episode, unspecified; F20.9 Schizophrenia, unspecified; Z56.0 Unemployment, unspecified; Z59.00 Homelessness unspecified; F15.10 Other stimulant abuse, uncomplicated; F11.10 Opioid abuse, uncomplicated; Z88.1 Allergy status to other antibiotic agents; Z79.899 Other long term (current) drug therapy
CPT/HCPCS: 99283

== ENCOUNTER 2022-05-15 12:34 | Emergency (ER) | payer MEDICARE ==
[~2022-05-15] VITALS: Ht 177.8 cm; Wt 68.2 kg
[~2022-05-15 12:34] MED LIST changes: -NEOM10DR45 LEFT EAR
[2022-05-15 12:45] VITALS: BP 153/86
[2022-05-15] MEDS ORDERED: ibuprofen 200mg tablet PO ONE (14:10)
== END 2022-05-15 14:23 | disposition home or self-care (01) ==
LOC: ER 12:35
DX: G89.29 Other chronic pain (principal); M79.662 Pain in left lower leg; M54.9 Dorsalgia, unspecified; R11.0 Nausea; E11.9 Type 2 diabetes mellitus without complications; F15.90 Other stimulant use, unspecified, uncomplicated; F11.90 Opioid use, unspecified, uncomplicated; Z56.0 Unemployment, unspecified; Z59.00 Homelessness unspecified; Z86.16 Personal history of COVID-19; Z72.89 Other problems related to lifestyle; Z79.899 Other long term (current) drug therapy; Z79.01 Long term (current) use of anticoagulants
CPT/HCPCS: 99282

== ENCOUNTER 2022-07-02 13:18 | Emergency (ER) | payer MEDICARE ==
[~2022-07-02] VITALS: Ht 177.8 cm; Wt 68.2 kg
[~2022-07-02 13:18] MED LIST changes: +CEPH-585 PO
[2022-07-02 13:40] VITALS: BP 133/89
[2022-07-02] MEDS ORDERED: cephalexin 500mg capsule PO ONE (16:15)
[2022-07-02] MEDS ORDERED: CEPH500C2 PO (16:22)
== END 2022-07-02 16:36 | disposition home or self-care (01) ==
LOC: ER 13:18
DX: L55.1 Sunburn of second degree (principal); H05.012 Cellulitis of left orbit; E11.9 Type 2 diabetes mellitus without complications; G89.29 Other chronic pain; F15.20 Other stimulant dependence, uncomplicated; F14.10 Cocaine abuse, uncomplicated; Z59.00 Homelessness unspecified; Z56.0 Unemployment, unspecified; Z88.8 Allergy status to other drugs, medicaments and biological substances
CPT/HCPCS: 99283

== ENCOUNTER 2022-07-03 15:24 | Emergency (ER) | payer MEDICARE ==
[~2022-07-03] VITALS: Ht 177.8 cm; Wt 68.2 kg
[~2022-07-03 15:24] MED LIST changes: +CEPH500C2 PO
[2022-07-03 15:58] VITALS: BP 142/93
[2022-07-03] MEDS ORDERED: CefTRIAXone 1000mg IM Kit (w/lidocaine diluent) IM ONE (16:15)
== END 2022-07-03 16:56 | disposition home or self-care (01) ==
LOC: ER 15:25
DX: S40.812A Abrasion of left upper arm, initial encounter (principal); S40.811A Abrasion of right upper arm, initial encounter; L55.9 Sunburn, unspecified; L03.211 Cellulitis of face; E11.9 Type 2 diabetes mellitus without complications; G89.29 Other chronic pain; Z86.14 Personal history of Methicillin resistant Staphylococcus aureus infection; F15.90 Other stimulant use, unspecified, uncomplicated; F11.90 Opioid use, unspecified, uncomplicated; Z56.0 Unemployment, unspecified; Z59.00 Homelessness unspecified; Z72.89 Other problems related to lifestyle; Z88.8 Allergy status to other drugs, medicaments and biological substances; Z79.2 Long term (current) use of antibiotics; Z79.899 Other long term (current) drug therapy; X58.XXXA Exposure to other specified factors, initial encounter; Y93.89 Activity, other specified; Y92.89 Other specified places as the place of occurrence of the external cause; Y99.8 Other external cause status
CPT/HCPCS: 96372; 99283; J0696

== ENCOUNTER 2022-08-06 11:23 | Emergency (ER) | payer MEDICARE, MEDICAID ==
[~2022-08-06] VITALS: Ht 177.8 cm; Wt 77.4 kg
[~2022-08-06 11:23] MED LIST changes: -CEPH500C2 PO
[2022-08-06 11:50] VITALS: BP 169/101
== END 2022-08-06 12:54 | disposition home or self-care (01) ==
LOC: ER 11:23
DX: S00.86XD Insect bite (nonvenomous) of other part of head, subsequent encounter (principal); G89.29 Other chronic pain; E11.9 Type 2 diabetes mellitus without complications; F32.A Depression, unspecified; F20.9 Schizophrenia, unspecified; F15.90 Other stimulant use, unspecified, uncomplicated; F11.90 Opioid use, unspecified, uncomplicated; Z76.0 Encounter for issue of repeat prescription; Z86.14 Personal history of Methicillin resistant Staphylococcus aureus infection; Z72.89 Other problems related to lifestyle; Z60.2 Problems related to living alone; Z56.0 Unemployment, unspecified; Z59.00 Homelessness unspecified; Z88.8 Allergy status to other drugs, medicaments and biological substances; Z79.2 Long term (current) use of antibiotics; Z79.899 Other long term (current) drug therapy; X32 Exposure to sunlight
CPT/HCPCS: 99281

== ENCOUNTER 2022-10-22 14:46 | Emergency (ER) | payer MEDICARE, MEDICAID ==
[~2022-10-22] VITALS: Ht 177.8 cm; Wt 68.2 kg
[2022-10-22 14:51] VITALS: BP 154/88
== END 2022-10-22 18:09 | disposition home or self-care (01) ==
LOC: ER 14:47
DX: L84 Corns and callosities (principal); E11.9 Type 2 diabetes mellitus without complications; F32.A Depression, unspecified; F20.9 Schizophrenia, unspecified; Z86.14 Personal history of Methicillin resistant Staphylococcus aureus infection; F17.200 Nicotine dependence, unspecified, uncomplicated; F15.10 Other stimulant abuse, uncomplicated; Z59.00 Homelessness unspecified; Z56.0 Unemployment, unspecified; Z88.1 Allergy status to other antibiotic agents; Z79.899 Other long term (current) drug therapy
CPT/HCPCS: 99283; L3260

== ENCOUNTER 2022-11-13 14:08 | Emergency (ER) | payer MEDICARE, MEDICAID ==
[~2022-11-13] VITALS: Ht 177.8 cm; Wt 65.0 kg
[2022-11-13 14:23] VITALS: BP 144/90
[2022-11-13] MEDS ORDERED: ondansetron 4mg rapidly disintigrating tab PO ONE (15:00)
[2022-11-13] MEDS ORDERED: oxyCODONE/APAP 10/325mg tablet PO ONE (15:00)
[2022-11-13] MEDS ORDERED: cephalexin 250mg capsule PO ONE (15:05)
[2022-11-13] MEDS ORDERED: ibuprofen tablet 400 MG TABLET PO ONE (15:05)
[2022-11-13] MEDS ORDERED: CEPH250T PO (15:09)
== END 2022-11-13 15:31 | disposition home or self-care (01) ==
LOC: ER 14:08
DX: S00.81XA Abrasion of other part of head, initial encounter (principal); G89.29 Other chronic pain; F31.9 Bipolar disorder, unspecified; F20.9 Schizophrenia, unspecified; F15.10 Other stimulant abuse, uncomplicated; Z56.0 Unemployment, unspecified; Z59.00 Homelessness unspecified; Z88.1 Allergy status to other antibiotic agents; Z79.1 Long term (current) use of non-steroidal anti-inflammatories (NSAID); Z79.2 Long term (current) use of antibiotics; X58.XXXA Exposure to other specified factors, initial encounter; Y93.89 Activity, other specified; Y92.89 Other specified places as the place of occurrence of the external cause; Y99.8 Other external cause status
CPT/HCPCS: 99283

== ENCOUNTER 2022-11-28 20:27 | Emergency (ER) | payer MEDICARE, MEDICAID ==
[~2022-11-28] VITALS: Ht 177.8 cm; Wt 68.2 kg
[2022-11-28 20:51] VITALS: BP 172/95
[2022-11-28] MEDS ORDERED: acetaminophen 325mg tablet PO ONE (22:35)
[2022-11-28] MEDS ORDERED: ondansetron 4mg rapidly disintigrating tab PO ONE (22:35)
[2022-11-28] MEDS ORDERED: penicillin G benzathine 1.2 million unit/2ml syringe IM ONE (22:35)
[2022-11-28] MEDS ORDERED: ibuprofen tablet 400 MG TABLET PO ONE (22:35)
[2022-11-28] MEDS ORDERED: PENICILLIN G BENZATHINE 2,400,000 UNIT/4 ML SYRINGE IM ONE (22:40)
== END 2022-11-29 00:01 | disposition home or self-care (01) ==
LOC: ER 20:27
DX: J20.9 Acute bronchitis, unspecified (principal); E11.9 Type 2 diabetes mellitus without complications; F32.A Depression, unspecified; F20.9 Schizophrenia, unspecified; F17.200 Nicotine dependence, unspecified, uncomplicated; F15.10 Other stimulant abuse, uncomplicated; F11.10 Opioid abuse, uncomplicated; Z59.00 Homelessness unspecified; Z56.0 Unemployment, unspecified; Z88.1 Allergy status to other antibiotic agents; Z79.1 Long term (current) use of non-steroidal anti-inflammatories (NSAID); Z79.2 Long term (current) use of antibiotics; Z79.899 Other long term (current) drug therapy
CPT/HCPCS: 96372; 99284; J0561

== ENCOUNTER 2023-01-05 11:38 | Emergency (ER) | payer MEDICARE, MEDICAID ==
[~2023-01-05] VITALS: Ht 177.8 cm; Wt 70.5 kg
[2023-01-05] MEDS ORDERED: ondansetron/PF 4mg/2ml inj IV ONE (11:55)
[2023-01-05] MEDS ORDERED: normal saline 1000ML IV soln IVB ONE (11:55)
[2023-01-05 12:19] LABS: BASOPHILS % (AUTO) 0.4 % (0-1); EOSINOPHILS # (AUTO) 0.1 X10'3 (0-0.9); EOSINOPHILS % (AUTO) 0.6 % (0-6); HEMATOCRIT 37.7 % (42.0-52.0); HEMOGLOBIN 12.1 g/dl (14.0-17.9); LYMPHOCYTES # (AUTO) 0.9 X10'3 (1.1-4.8); LYMPHOCYTES % (AUTO) 8.5 % (21-51); MEAN CORPUSCULAR HEMOGLOBIN 26.8 PG (27.0-31.0); MEAN CORPUSCULAR VOLUME 83.7 FL (78-98); MEAN PLATELET VOLUME 7.5 FL (7.4-10.4); MONOCYTES # (AUTO) 0.7 X10'3 (0-0.9); NEUTROPHILS # (AUTO) 9.4 X10'3 (1.8-7.7); NEUTROPHILS % (AUTO) 84.5 % (42-75); PLATELET COUNT 247 X10'3 (140-440); RED CELL DISTRIBUTION WIDTH 15.4 % (11.5-14.5); WHITE BLOOD COUNT 11.1 X10'3 (4.5-11.0)
[2023-01-05 12:28] LABS: ALANINE AMINOTRANSFERASE 25 U/L (12-78); ALBUMIN 3.3 G/DL (3.4-5.0); ALBUMIN/GLOBULIN RATIO 0.9 (1.1-1.5); ALKALINE PHOSPHATASE 57 IU/L (46-116); ANION GAP 7 (8-16); ASPARTATE AMINO TRANSFERASE 27 U/L (10-37); BILIRUBIN,TOTAL 0.2 MG/DL (0.1-1.0); BLOOD UREA NITROGEN 27 MG/DL (7-18); BUN/CREATININE RATIO 40.3 (5.4-32.0); CALCIUM 8.5 MG/DL (8.5-10.1); CHLORIDE 102 MMOL/L (99-107); CREATININE 0.67 MG/DL (0.60-1.10); ETHANOL < 0.010 GM/DL (0.0-0.010); GLUCOSE 122 MG/DL (70-104); LIPASE 77 U/L (73-393); POTASSIUM 3.7 MMOL/L (3.5-5.1); SODIUM 134 MMOL/L (135-145); TOTAL CARBON DIOXIDE 25.5 MMOL/L (24-32); TOTAL PROTEIN 7.1 G/DL (6.4-8.2); eGFR > 90 ML/MIN
[2023-01-05] MEDS ORDERED: normal saline 1000ml 1,000 ML IV ONE (13:15)
[2023-01-05] MEDS ORDERED: ONDA4TAB12 PO (13:36)
[2023-01-05 14:22] LABS: URINE AMPHETAMINE SCREEN POSITIVE (Neg); URINE BARBITUATE SCREEN NEGATIVE (Neg); URINE BENZODIAZEPINES SCREEN NEGATIVE (Neg); URINE CANNABINOID SCREEN NEGATIVE (Neg); URINE COCAINE SCREEN NEGATIVE (Neg); URINE METHADONE SCREEN NEGATIVE (Neg); URINE OPIATE SCREEN NEGATIVE (Neg); URINE PHENCYCLIDINE SCREEN NEGATIVE (Neg)
[2023-01-05 14:34] LABS: CLARITY,URINE CLEAR (Clear); COLOR,URINE YELLOW (Yellow); GLUCOSE, URINE NEGATIVE (Neg); KETONES,URINE NEGATIVE (Neg); LEUKOCYTE ESTERASE ,URINE NEGATIVE (Neg); NITRITES, URINE NEGATIVE (Neg); OCCULT BLOOD,URINE NEGATIVE (Neg); PH,URINE 5.5 (4.8-8.0); PROTEIN,URINE NEGATIVE (Neg); UROBILINOGEN,URINE 0.2 E.U/dL (0.2-1.0)
[2023-01-05 14:59] LABS: UA COLLECTION TYPE VOIDED
[2023-01-05] MEDS ORDERED: ondansetron 4mg rapidly disintigrating tab PO ONE (15:15)
[2023-01-05 15:39] VITALS: BP 139/82
== END 2023-01-05 15:48 | disposition home or self-care (01) ==
LOC: ER 11:38
DX: R10.84 Generalized abdominal pain (principal); R11.2 Nausea with vomiting, unspecified; E11.9 Type 2 diabetes mellitus without complications; G89.29 Other chronic pain; F32.A Depression, unspecified; F20.9 Schizophrenia, unspecified; F15.10 Other stimulant abuse, uncomplicated; Z59.00 Homelessness unspecified; Z56.0 Unemployment, unspecified; Z88.1 Allergy status to other antibiotic agents; Z79.899 Other long term (current) drug therapy; Z79.1 Long term (current) use of non-steroidal anti-inflammatories (NSAID); Z79.2 Long term (current) use of antibiotics
CPT/HCPCS: 36415; 80053; 80305; 80320; 81003; 83690; 83735; 85025; 96361; 96374; 99285; J2405; J7030

== ENCOUNTER 2023-02-23 20:22 | Emergency (ER) | payer MEDICARE, MEDICAID ==
[~2023-02-23] VITALS: Ht 170.2 cm; Wt 68.2 kg
[~2023-02-23 20:22] MED LIST changes: +ONDA4TAB12 PO
[2023-02-23 20:32] VITALS: BP 153/93
[2023-02-24] MEDS ORDERED: gabapentin 300mg capsule PO ONE (01:15)
[2023-02-24] MEDS ORDERED: HYDROcodone/acetaminophen 5mg/325mg tablet PO ONE (01:15)
== END 2023-02-24 01:43 | disposition home or self-care (01) ==
LOC: ER 20:22
DX: M79.674 Pain in right toe(s) (principal); M79.604 Pain in right leg; M79.605 Pain in left leg; F17.200 Nicotine dependence, unspecified, uncomplicated; F15.10 Other stimulant abuse, uncomplicated; E11.9 Type 2 diabetes mellitus without complications; F20.9 Schizophrenia, unspecified; F32.A Depression, unspecified; Z59.00 Homelessness unspecified; Z56.0 Unemployment, unspecified; Z88.8 Allergy status to other drugs, medicaments and biological substances; Z79.899 Other long term (current) drug therapy; Z79.1 Long term (current) use of non-steroidal anti-inflammatories (NSAID); Z79.2 Long term (current) use of antibiotics; Z79.84 Long term (current) use of oral hypoglycemic drugs
CPT/HCPCS: 99283

== ENCOUNTER 2023-03-04 19:51 | Emergency (ER) | payer MEDICARE, MEDICAID ==
[~2023-03-04] VITALS: Ht 177.8 cm; Wt 68.2 kg
[2023-03-04 20:03] VITALS: BP 170/84
[2023-03-04] MEDS ORDERED: SULF1TAB45 PO (21:14)
[2023-03-04] MEDS ORDERED: sulfamethoxazole/trimethoprim DS (800/160mg) tablet PO ONE (21:15)
== END 2023-03-04 21:23 | disposition home or self-care (01) ==
LOC: ER 19:51
DX: L03.114 Cellulitis of left upper limb (principal); E11.9 Type 2 diabetes mellitus without complications; G89.29 Other chronic pain; F32.A Depression, unspecified; F20.9 Schizophrenia, unspecified; F12.10 Cannabis abuse, uncomplicated; F11.10 Opioid abuse, uncomplicated; Z59.00 Homelessness unspecified; Z56.0 Unemployment, unspecified; Z88.1 Allergy status to other antibiotic agents; Z79.899 Other long term (current) drug therapy; Z79.1 Long term (current) use of non-steroidal anti-inflammatories (NSAID); Z79.2 Long term (current) use of antibiotics
CPT/HCPCS: 99283

== ENCOUNTER 2023-04-23 02:24 | Emergency (ER) | payer MEDICARE, MEDICAID ==
[~2023-04-23] VITALS: Ht 177.8 cm; Wt 67.8 kg
[2023-04-23 02:40] VITALS: BP 137/75
[2023-04-23] MEDS ORDERED: MUPI22OI30 TOP (05:24)
== END 2023-04-23 05:49 | disposition home or self-care (01) ==
LOC: ER 02:25
DX: S00.81XA Abrasion of other part of head, initial encounter (principal); E11.9 Type 2 diabetes mellitus without complications; G89.29 Other chronic pain; F11.90 Opioid use, unspecified, uncomplicated; F15.90 Other stimulant use, unspecified, uncomplicated; Z59.00 Homelessness unspecified; Z56.0 Unemployment, unspecified; Z88.8 Allergy status to other drugs, medicaments and biological substances; Z79.899 Other long term (current) drug therapy; Z79.2 Long term (current) use of antibiotics; Z86.14 Personal history of Methicillin resistant Staphylococcus aureus infection; X58.XXXA Exposure to other specified factors, initial encounter; Y93.89 Activity, other specified; Y92.89 Other specified places as the place of occurrence of the external cause; Y99.8 Other external cause status
CPT/HCPCS: 99283

== ENCOUNTER 2023-05-08 20:11 | Emergency (ER) | payer MEDICARE, MEDICAID ==
[~2023-05-08] VITALS: Ht 177.8 cm; Wt 68.2 kg
[2023-05-08 21:29] VITALS: BP 156/95
[2023-05-09] MEDS ORDERED: TETanus/Pertussis (Acell)/Diphther VAC/PF (Tdap-Adult) 0.5ml syringe IMVAC ONE (00:35)
[2023-05-09] MEDS ORDERED: CEPH-585 PO (00:36)
== END 2023-05-09 00:59 | disposition home or self-care (01) ==
LOC: ER 20:11
DX: S00.81XA Abrasion of other part of head, initial encounter (principal); W57.XXXA Bitten or stung by nonvenomous insect and other nonvenomous arthropods, initial encounter; Y93.89 Activity, other specified; Y92.89 Other specified places as the place of occurrence of the external cause; Y99.8 Other external cause status
CPT/HCPCS: 90471; 90715; 99283

== ENCOUNTER 2023-05-19 20:37 | Emergency (ER) | payer MEDICARE, MEDICAID ==
[~2023-05-19] VITALS: Ht 177.8 cm; Wt 59.0 kg
[2023-05-19 20:59] VITALS: BP 159/93
[2023-05-20] MEDS ORDERED: Cipro HC otic suspension 10ML bottle RIGHT EAR SCH (00:35)
== END 2023-05-20 00:50 | disposition home or self-care (01) ==
LOC: ER 20:38
DX: H60.91 Unspecified otitis externa, right ear (principal); E11.9 Type 2 diabetes mellitus without complications; F15.20 Other stimulant dependence, uncomplicated; Z88.8 Allergy status to other drugs, medicaments and biological substances; Z59.00 Homelessness unspecified; Z56.0 Unemployment, unspecified
CPT/HCPCS: 99281

== ENCOUNTER 2023-05-29 11:51 | Emergency (ER) | payer MEDICARE, MEDICAID ==
[~2023-05-29] VITALS: Ht 177.8 cm; Wt 68.2 kg
[2023-05-29 12:10] VITALS: BP 154/97
== END 2023-05-29 14:47 | disposition left against medical advice (07) ==
LOC: ER 11:52
DX: H92.01 Otalgia, right ear (principal); Z53.21 Procedure and treatment not carried out due to patient leaving prior to being seen by health care provider
CPT/HCPCS: 99281

== ENCOUNTER 2023-06-23 13:30 | Emergency (ER) | payer MEDICARE, MEDICAID ==
[~2023-06-23] VITALS: Ht 170.2 cm; Wt 68.2 kg
[2023-06-23 14:02] VITALS: BP 119/75; PULSE 64; RESP 16; TEMP 98.5; O2SAT 97
[2023-06-23] MEDS ORDERED: LOPE1TAB46 PO (15:00)
== END 2023-06-23 15:08 | disposition home or self-care (01) ==
LOC: ER 13:31
DX: R19.7 Diarrhea, unspecified (principal); E11.9 Type 2 diabetes mellitus without complications; F32.A Depression, unspecified; F20.9 Schizophrenia, unspecified; F15.10 Other stimulant abuse, uncomplicated; F11.10 Opioid abuse, uncomplicated; Z59.00 Homelessness unspecified; Z56.0 Unemployment, unspecified; Z88.1 Allergy status to other antibiotic agents; Z88.8 Allergy status to other drugs, medicaments and biological substances; Z79.1 Long term (current) use of non-steroidal anti-inflammatories (NSAID); Z79.2 Long term (current) use of antibiotics
CPT/HCPCS: 99282

== ENCOUNTER 2023-08-04 13:14 | Emergency (ER) | payer MEDICARE, MEDICAID ==
[~2023-08-04] VITALS: Ht 177.8 cm; Wt 68.2 kg
[~2023-08-04 13:14] MED LIST changes: +LOPE1TAB46 PO
[2023-08-04 13:19] VITALS: BP 160/85; PULSE 94; RESP 16; TEMP 98; O2SAT 96
== END 2023-08-04 17:46 | disposition left against medical advice (07) ==
LOC: ER 13:14
DX: L02.416 Cutaneous abscess of left lower limb (principal); Z53.21 Procedure and treatment not carried out due to patient leaving prior to being seen by health care provider; W57.XXXA Bitten or stung by nonvenomous insect and other nonvenomous arthropods, initial encounter; Y93.89 Activity, other specified; Y92.89 Other specified places as the place of occurrence of the external cause; Y99.8 Other external cause status
CPT/HCPCS: 99281

== ENCOUNTER 2023-09-05 16:53 | Emergency (ER) | payer MEDICARE, MEDICAID ==
[~2023-09-05] VITALS: Ht 177.8 cm; Wt 75.0 kg
[2023-09-05 17:04] VITALS: BP 194/101; PULSE 89; RESP 18; TEMP 97.8; O2SAT 98
[2023-09-05] MEDS ORDERED: DOXY150T5 PO (22:20)
[2023-09-05] MEDS ORDERED: BACI1PAC7 TOP (22:20)
== END 2023-09-05 23:24 | disposition home or self-care (01) ==
LOC: ER 16:54
DX: L03.90 Cellulitis, unspecified (principal); E11.9 Type 2 diabetes mellitus without complications; Z88.8 Allergy status to other drugs, medicaments and biological substances; Z79.899 Other long term (current) drug therapy; Z79.2 Long term (current) use of antibiotics
CPT/HCPCS: 99283

== ENCOUNTER 2023-09-06 23:19 | Emergency (ER) | payer MEDICARE, MEDICAID ==
[~2023-09-06] VITALS: Ht 177.8 cm; Wt 68.2 kg
[~2023-09-06 23:19] MED LIST changes: +BACI1PAC7 TOP; +DOXY150T5 PO
[2023-09-06 23:26] VITALS: BP 133/86; PULSE 92; RESP 16; TEMP 99.1; O2SAT 95
[2023-09-07] MEDS ORDERED: sulfamethoxazole/trimethoprim DS (800/160mg) tablet PO ONE (01:15)
[2023-09-07] MEDS ORDERED: ondansetron 4mg rapidly disintigrating tab PO ONE (01:15)
[2023-09-07] MEDS ORDERED: SULF1TAB45 PO (01:17)
== END 2023-09-07 01:49 | disposition home or self-care (01) ==
LOC: ER 23:19
DX: A41.1 Sepsis due to other specified staphylococcus (principal); B95.8 Unspecified staphylococcus as the cause of diseases classified elsewhere; E11.9 Type 2 diabetes mellitus without complications; F15.90 Other stimulant use, unspecified, uncomplicated; Z88.8 Allergy status to other drugs, medicaments and biological substances; Z79.1 Long term (current) use of non-steroidal anti-inflammatories (NSAID)
CPT/HCPCS: 99283

== ENCOUNTER → 2023-09-25 | Emergency (ER) | payer MEDICARE, MEDICAID ==
[~2023-09-25] VITALS: Ht 177.8 cm; Wt 68.2 kg
[~2023-09-25] MED LIST changes: +BACI28OI9 TP; -DOXY150T5 PO; +SULF1TAB49 PO; +bacitracin 15gm ointment TP ONE
[2023-09-25 23:26] VITALS: BP 177/104; PULSE 80; RESP 16; TEMP 98.5; O2SAT 98
--- NOTE | 2023-09-26 00:14 | NUR ---
DISPO NOTE FILLED INCORRECT BY ANOTHER USER. PT WAS SEEN EVAL AND TX BY PROVIDER FOR WOUND CHECK. DIAGNOSTICS PERFORMED. EDUCATION PROVIDED BY PROVIDER BEDSIDE. MEDS ADMIN PER ORDER W/ NO ASE. DC INSTRUCTIONS AND RX REVIEWED W/ PT WHO VERBALIZED UNDERSTANDING. DC W/ ALL BELONGINGS AND STEADY GAIT.
== END | disposition home or self-care (01) ==
LOC: ER 19:26
DX: R23.4 Changes in skin texture (principal); E11.9 Type 2 diabetes mellitus without complications; F20.9 Schizophrenia, unspecified; F15.10 Other stimulant abuse, uncomplicated; Z59.00 Homelessness unspecified; Z56.0 Unemployment, unspecified
CPT/HCPCS: 99283

== ENCOUNTER 2023-12-03 08:55 | Emergency (ER) | payer MEDICARE, MEDICAID ==
[~2023-12-03] VITALS: Ht 177.8 cm; Wt 80.0 kg
[~2023-12-03 08:55] MED LIST changes: -BACI1PAC7 TOP; -SULF1TAB49 PO; -bacitracin 15gm ointment TP ONE
[2023-12-03 08:57] VITALS: O2SAT 98
[2023-12-03 09:35] VITALS: TEMP 98.9
[2023-12-03 10:09] VITALS: BP 147/99; PULSE 108; RESP 14
[2023-12-03] MEDS ORDERED: normal saline 1000ml 1,000 ML IV ONE (10:10)
[2023-12-03 10:23] LABS: BASOPHILS % (AUTO) 0.2 % (0-1); EOSINOPHILS % (AUTO) 0.1 % (0-6); HEMATOCRIT 39.6 % (42.0-52.0); LYMPHOCYTES # (AUTO) 0.5 X10'3 (1.1-4.8); LYMPHOCYTES % (AUTO) 5.2 % (21-51); MEAN CORPUSCULAR HEMOGLOBIN 27.7 PG (27.0-31.0); MEAN CORPUSCULAR HGB CONC 32.8 g/dL (33.0-36.5); MEAN CORPUSCULAR VOLUME 84.4 FL (78-98); MEAN PLATELET VOLUME 7.2 FL (7.4-10.4); MONOCYTES # (AUTO) 0.3 X10'3 (0-0.9); MONOCYTES % (AUTO) 3.2 % (2-12); NEUTROPHILS # (AUTO) 9.4 X10'3 (1.8-7.7); NEUTROPHILS % (AUTO) 91.3 % (42-75); PLATELET COUNT 383 X10'3 (140-440); RED CELL DISTRIBUTION WIDTH 15.6 % (11.5-14.5); WHITE BLOOD COUNT 10.2 X10'3 (4.5-11.0)
[2023-12-03 10:32] LABS: ALANINE AMINOTRANSFERASE 27 U/L (12-78); ALBUMIN/GLOBULIN RATIO 0.6 (1.1-1.5); ALKALINE PHOSPHATASE 70 IU/L (46-116); ASPARTATE AMINO TRANSFERASE 25 U/L (10-37); BILIRUBIN,TOTAL 0.4 MG/DL (0.1-1.0); BLOOD UREA NITROGEN 25 MG/DL (7-18); BUN/CREATININE RATIO 30.1 (10.0-20.0); CALCIUM 8.8 MG/DL (8.5-10.1); CHLORIDE 101 MMOL/L (99-107); CREATININE 0.83 MG/DL (0.60-1.10); GLUCOSE 134 MG/DL (70-104); LIPASE 25 U/L (16-77); POTASSIUM 3.1 MMOL/L (3.5-5.1); TOTAL CARBON DIOXIDE 28.3 MMOL/L (24-32); TOTAL PROTEIN 7.8 G/DL (6.4-8.2); eCRCL 98 ML/MIN; eGFR > 90 ML/MIN
[2023-12-03 10:35] LABS: ANION GAP 10 (8-16); SODIUM 139 MMOL/L (135-145)
[2023-12-03] MEDS ORDERED: normal saline 1000ML IV soln IVB ONE (10:35)
[2023-12-03 11:38] LABS: BILIRUBIN,URINE NEGATIVE (Neg); CLARITY,URINE CLEAR (Clear); COLOR,URINE YELLOW (Yellow); GLUCOSE, URINE NEGATIVE (Neg); KETONES,URINE NEGATIVE (Neg); LEUKOCYTE ESTERASE ,URINE NEGATIVE (Neg); NITRITES, URINE NEGATIVE (Neg); OCCULT BLOOD,URINE NEGATIVE (Neg); PH,URINE 5.5 (4.8-8.0); PROTEIN,URINE 30 mg/dl (Neg); UROBILINOGEN,URINE 0.2 E.U/dL (0.2-1.0)
[2023-12-03 11:41] LABS: UA COLLECTION TYPE CLN CATCH MIDSTREAM
[2023-12-03 11:42] LABS: BACTERIA,URINE NONE SEEN /HPF (Neg); MUCUS STRANDS FEW /LPF (Neg); RBC,URINE NONE SEEN /HPF (0-2); SQUAMOUS EPITHELIAL CELL,UR FEW /LPF (FEW); WBC,URINE 0-4 /HPF (0-4)
[2023-12-03 13:20] LABS: C DIFFICILE TOXINS A&B NEGATIVE (Neg)
[2023-12-03 13:21] LABS: C DIFF ANTIGEN NEGATIVE (NEGATIVE); C DIFF SPECIMEN=DIARRHEA? ACCEPTABLE
== END 2023-12-03 14:45 | disposition home or self-care (01) ==
LOC: ER 08:55
DX: R19.7 Diarrhea, unspecified (principal); R11.10 Vomiting, unspecified; Z20.822 Contact with and (suspected) exposure to COVID-19; E11.9 Type 2 diabetes mellitus without complications; G89.29 Other chronic pain; F32.9 Major depressive disorder, single episode, unspecified; F20.9 Schizophrenia, unspecified; F15.90 Other stimulant use, unspecified, uncomplicated; F11.90 Opioid use, unspecified, uncomplicated; Z72.89 Other problems related to lifestyle; Z59.00 Homelessness unspecified; Z56.0 Unemployment, unspecified; Z60.2 Problems related to living alone; Z86.14 Personal history of Methicillin resistant Staphylococcus aureus infection; Z88.8 Allergy status to other drugs, medicaments and biological substances; Z79.899 Other long term (current) drug therapy
CPT/HCPCS: 36415; 80053; 81001; 82948; 83690; 85025; 87324; 87449; 96360; 99283; J7030; C1758

== ENCOUNTER 2023-12-04 11:29 | Emergency (ER) | payer MEDICARE, MEDICAID ==
[~2023-12-04] VITALS: Ht 177.8 cm; Wt 68.2 kg
[2023-12-04 11:52] VITALS: BP 161/84; PULSE 88; RESP 18; TEMP 99.4; O2SAT 98
[2023-12-04] MEDS ORDERED: mag hydrox/Alum hydrox/simeth 30ml oral suspension PO ONE (12:25)
[2023-12-04] MEDS ORDERED: LIDOcaine Viscous 15ml cup MM PRN (12:25)
== END 2023-12-04 12:40 | disposition home or self-care (01) ==
LOC: ER 11:30
DX: R19.7 Diarrhea, unspecified (principal); E11.9 Type 2 diabetes mellitus without complications; F15.90 Other stimulant use, unspecified, uncomplicated; Z88.8 Allergy status to other drugs, medicaments and biological substances; Z79.2 Long term (current) use of antibiotics; Z79.899 Other long term (current) drug therapy; Z79.1 Long term (current) use of non-steroidal anti-inflammatories (NSAID)
CPT/HCPCS: 99282

== ENCOUNTER 2023-12-21 13:07 | Emergency (ER) | payer MEDICARE, MEDICAID ==
[~2023-12-21] VITALS: Ht 177.8 cm; Wt 68.0 kg
[~2023-12-21 13:07] MED LIST changes: +UNABLE TO OBTAIN
[2023-12-21 13:46] VITALS: BP 161/112; PULSE 79; RESP 18; TEMP 98.2; O2SAT 98
== END 2023-12-21 15:25 | disposition left against medical advice (07) ==
LOC: ER 13:08
DX: T33.821A Superficial frostbite of right foot, initial encounter (principal); T33.822A Superficial frostbite of left foot, initial encounter; Z53.21 Procedure and treatment not carried out due to patient leaving prior to being seen by health care provider
CPT/HCPCS: 71045; 99281

== ENCOUNTER 2023-12-21 15:25 | Emergency (ER) | payer MEDICARE, MEDICAID ==
[~2023-12-21] VITALS: Ht 167.6 cm; Wt 68.2 kg
[2023-12-21 16:14] VITALS: BP 162/102; PULSE 83; RESP 18; O2SAT 100
[2023-12-21 16:53] VITALS: TEMP 97.8
== END 2023-12-21 16:58 | disposition home or self-care (01) ==
LOC: ER 15:26
DX: S90.811A Abrasion, right foot, initial encounter (principal); S00.01XA Abrasion of scalp, initial encounter; E11.9 Type 2 diabetes mellitus without complications; G89.29 Other chronic pain; F15.90 Other stimulant use, unspecified, uncomplicated; F11.90 Opioid use, unspecified, uncomplicated; Z56.0 Unemployment, unspecified; Z86.14 Personal history of Methicillin resistant Staphylococcus aureus infection; Z59.00 Homelessness unspecified; Z88.8 Allergy status to other drugs, medicaments and biological substances; Z79.2 Long term (current) use of antibiotics; Z79.899 Other long term (current) drug therapy; X58.XXXA Exposure to other specified factors, initial encounter; Y93.89 Activity, other specified; Y92.89 Other specified places as the place of occurrence of the external cause; Y99.8 Other external cause status
CPT/HCPCS: 99283

== ENCOUNTER 2024-03-06 13:38 | Emergency (ER) | payer MEDICARE, MEDICAID ==
[~2024-03-06] VITALS: Ht 177.8 cm; Wt 62.7 kg
[2024-03-06 14:01] VITALS: TEMP 97.2
[2024-03-06] MEDS ORDERED: CEPH-585 PO (17:10)
[2024-03-06] MEDS ORDERED: DOXY-356 PO (17:10)
[2024-03-06] MEDS: DOXYCYCLINE 100MG CAPSULE PO STA (17:41)
[2024-03-06 17:46] VITALS: BP 145/96; PULSE 97; RESP 18; O2SAT 98
== END 2024-03-06 18:08 | disposition home or self-care (01) ==
LOC: ER 13:39
DX: S80.922A Unspecified superficial injury of left lower leg, initial encounter (principal); Z88.8 Allergy status to other drugs, medicaments and biological substances; X58.XXXA Exposure to other specified factors, initial encounter; Y93.89 Activity, other specified; Y92.89 Other specified places as the place of occurrence of the external cause; Y99.8 Other external cause status
CPT/HCPCS: 99283

== ENCOUNTER 2024-04-05 07:24 | Emergency (ER) | payer MEDICARE, MEDICAID ==
[~2024-04-05] VITALS: Ht 167.6 cm; Wt 72.2 kg
[2024-04-05 07:25] VITALS: TEMP 98
[2024-04-05] MEDS ORDERED: IBUP-1984 PO (09:08)
[2024-04-05] MEDS: ibuprofen tablet 400 MG TABLET PO ONE (09:10)
[2024-04-05] MEDS: acetaminophen 325mg tablet PO STA (09:51)
[2024-04-05 10:20] VITALS: BP 166/96; PULSE 72; RESP 16; O2SAT 100
== END 2024-04-05 09:45 | disposition home or self-care (01) ==
LOC: ER 07:24
DX: M54.2 Cervicalgia (principal); R51.9 Headache, unspecified; E11.9 Type 2 diabetes mellitus without complications; F15.90 Other stimulant use, unspecified, uncomplicated; Z88.8 Allergy status to other drugs, medicaments and biological substances; Z79.899 Other long term (current) drug therapy; Z79.2 Long term (current) use of antibiotics; Z79.1 Long term (current) use of non-steroidal anti-inflammatories (NSAID)
CPT/HCPCS: 70450; 72125; 99284

== ENCOUNTER 2024-05-16 09:50 | Emergency (ER) | payer MEDICARE, MEDICAID ==
[~2024-05-16 09:50] MED LIST changes: -CEPH-585 PO
[2024-05-16 10:00] VITALS: BP 151/100; PULSE 89; RESP 18; TEMP 97.5; O2SAT 99
== END 2024-05-16 14:02 | disposition left against medical advice (07) ==
LOC: ER 09:50
DX: H57.12 Ocular pain, left eye (principal); Z53.21 Procedure and treatment not carried out due to patient leaving prior to being seen by health care provider

== ENCOUNTER 2024-06-21 19:14 | Emergency (ER) | payer MEDICARE, MEDICAID ==
[~2024-06-21] VITALS: Ht 177.8 cm; Wt 62.8 kg
[~2024-06-21 19:14] MED LIST changes: +ONDA-243 PO; -ONDA4TAB12 PO
[2024-06-21 19:16] VITALS: TEMP 99.1
[2024-06-21 19:36] LABS: BILIRUBIN,URINE NEGATIVE (Neg); CLARITY,URINE CLEAR (Clear); COLOR,URINE YELLOW (Yellow); GLUCOSE, URINE NEGATIVE (Neg); KETONES,URINE TRACE mg/dl (Neg); LEUKOCYTE ESTERASE ,URINE NEGATIVE (Neg); NITRITES, URINE NEGATIVE (Neg); OCCULT BLOOD,URINE NEGATIVE (Neg); PROTEIN,URINE TRACE mg/dl (Neg); UROBILINOGEN,URINE 0.2 E.U/dL (0.2-1.0)
[2024-06-21 19:43] LABS: UA COLLECTION TYPE CLN CATCH MIDSTREAM
[2024-06-21 19:45] LABS: BACTERIA,URINE FEW /HPF (Neg); MUCUS STRANDS NONE SEEN /LPF (Neg); RBC,URINE 0-2 /HPF (0-2); SQUAMOUS EPITHELIAL CELL,UR NONE SEEN /LPF (FEW); WBC,URINE 0-4 /HPF (0-4)
[2024-06-21 19:46] LABS: TRANSITIONAL EPI CELLS,URINE FEW /HPF
[2024-06-21 19:50] LABS: BASOPHILS # (AUTO) 0.1 X10'3 (0-0.2); BASOPHILS % (AUTO) 1.3 % (0-1); EOSINOPHILS # (AUTO) 0.3 X10'3 (0-0.9); EOSINOPHILS % (AUTO) 3.6 % (0-6); HEMATOCRIT 35.8 % (42.0-52.0); LYMPHOCYTES # (AUTO) 1.9 X10'3 (1.1-4.8); LYMPHOCYTES % (AUTO) 26.6 % (21-51); MEAN CORPUSCULAR HEMOGLOBIN 28.8 PG (27.0-31.0); MEAN CORPUSCULAR HGB CONC 33.6 g/dL (33.0-36.5); MEAN CORPUSCULAR VOLUME 85.8 FL (78-98); MEAN PLATELET VOLUME 7.4 FL (7.4-10.4); MONOCYTES # (AUTO) 0.6 X10'3 (0-0.9); MONOCYTES % (AUTO) 8.8 % (2-12); NEUTROPHILS # (AUTO) 4.4 X10'3 (1.8-7.7); NEUTROPHILS % (AUTO) 59.7 % (42-75); PLATELET COUNT 324 X10'3 (140-440); RED BLOOD COUNT 4.18 X10'6 (4.70-6.10); RED CELL DISTRIBUTION WIDTH 13.6 % (11.5-14.5); WHITE BLOOD COUNT 7.3 X10'3 (4.5-11.0)
[2024-06-21 20:04] LABS: ALANINE AMINOTRANSFERASE 27 U/L (12-78); ALBUMIN 3.1 G/DL (3.4-5.0); ALBUMIN/GLOBULIN RATIO 0.8 (1.1-1.5); ALKALINE PHOSPHATASE 57 IU/L (46-116); ANION GAP 6 (8-16); ASPARTATE AMINO TRANSFERASE 19 U/L (10-37); BILIRUBIN,TOTAL 0.2 MG/DL (0.1-1.0); BLOOD UREA NITROGEN 26 MG/DL (7-18); BUN/CREATININE RATIO 19.1 (10.0-20.0); CALCIUM 8.8 MG/DL (8.5-10.1); CHLORIDE 104 MMOL/L (99-107); CREATININE 1.36 MG/DL (0.60-1.10); GLUCOSE 124 MG/DL (70-104); LIPASE 58 U/L (16-77); POTASSIUM 3.5 MMOL/L (3.5-5.1); SODIUM 140 MMOL/L (135-145); TOTAL CARBON DIOXIDE 29.7 MMOL/L (24-32); TOTAL PROTEIN 7.2 G/DL (6.4-8.2); eCRCL 51 ML/MIN; eGFR 53 ML/MIN
[2024-06-21 21:00] VITALS: BP 119/77; PULSE 103; RESP 16; O2SAT 98
== END 2024-06-21 21:18 | disposition home or self-care (01) ==
LOC: ER 19:15
DX: K80.20 Calculus of gallbladder without cholecystitis without obstruction (principal); E11.9 Type 2 diabetes mellitus without complications; G89.29 Other chronic pain; F32.A Depression, unspecified; F20.9 Schizophrenia, unspecified; F15.90 Other stimulant use, unspecified, uncomplicated; F11.90 Opioid use, unspecified, uncomplicated; Z72.89 Other problems related to lifestyle; Z60.2 Problems related to living alone; Z56.0 Unemployment, unspecified; Z59.00 Homelessness unspecified; Z79.899 Other long term (current) drug therapy; Z79.84 Long term (current) use of oral hypoglycemic drugs; Z88.8 Allergy status to other drugs, medicaments and biological substances
CPT/HCPCS: 36415; 74176; 80053; 81001; 82948; 83690; 85025; 99284

== ENCOUNTER 2024-11-04 08:15 | Emergency (ER) | payer MEDICARE, MEDICAID ==
[~2024-11-04] VITALS: Ht 177.8 cm; Wt 75.0 kg
[2024-11-04 08:15] VITALS: BP 165/112; PULSE 88; RESP 22; O2SAT 16
[2024-11-04 09:41] VITALS: TEMP 97.7
[2024-11-04] MEDS ORDERED: ONDA-243 PO (23:12)
== END 2024-11-04 09:43 | disposition left against medical advice (07) ==
LOC: ER 08:15
DX: R10.84 Generalized abdominal pain (principal); R11.10 Vomiting, unspecified; R19.7 Diarrhea, unspecified; Z53.21 Procedure and treatment not carried out due to patient leaving prior to being seen by health care provider; Z88.8 Allergy status to other drugs, medicaments and biological substances

== ENCOUNTER → 2024-11-04 | Emergency (ER) | payer MEDICARE, MEDICAID ==
[~2024-11-04] VITALS: Ht 172.7 cm; Wt 65.2 kg
[2024-11-04] MEDS: ondansetron 4mg/5ml UD cup PO ONE (19:40)
[2024-11-04 20:12] LABS: BASOPHILS % (AUTO) 0.6 % (0-1); EOSINOPHILS % (AUTO) 0.7 % (0-6); HEMATOCRIT 34.9 % (42.0-52.0); HEMOGLOBIN 12.1 g/dl (14.0-17.9); LYMPHOCYTES # (AUTO) 1.4 X10'3 (1.1-4.8); LYMPHOCYTES % (AUTO) 22.5 % (21-51); MEAN CORPUSCULAR HEMOGLOBIN 30.4 PG (27.0-31.0); MEAN CORPUSCULAR HGB CONC 34.6 g/dL (33.0-36.5); MEAN CORPUSCULAR VOLUME 87.7 FL (78-98); MEAN PLATELET VOLUME 7.5 FL (7.4-10.4); MONOCYTES # (AUTO) 0.8 X10'3 (0-0.9); MONOCYTES % (AUTO) 11.8 % (2-12); NEUTROPHILS # (AUTO) 4.1 X10'3 (1.8-7.7); NEUTROPHILS % (AUTO) 64.4 % (42-75); PLATELET COUNT 292 X10'3 (140-440); RED BLOOD COUNT 3.98 X10'6 (4.70-6.10); RED CELL DISTRIBUTION WIDTH 12.9 % (11.5-14.5); WHITE BLOOD COUNT 6.4 X10'3 (4.5-11.0)
[2024-11-04 20:29] LABS: ALANINE AMINOTRANSFERASE 27 U/L (12-78); ALBUMIN 3.1 G/DL (3.4-5.0); ALBUMIN/GLOBULIN RATIO 0.8 (1.1-1.5); ALKALINE PHOSPHATASE 52 IU/L (46-116); ANION GAP 5 (8-16); ASPARTATE AMINO TRANSFERASE 28 U/L (10-37); BILIRUBIN,TOTAL 0.2 MG/DL (0.1-1.0); BLOOD UREA NITROGEN 28 MG/DL (7-18); CALCIUM 8.4 MG/DL (8.5-10.1); CHLORIDE 106 MMOL/L (99-107); CREATININE 1.12 MG/DL (0.60-1.10); GLUCOSE 113 MG/DL (70-104); LIPASE 31 U/L (16-77); SODIUM 141 MMOL/L (135-145); TOTAL CARBON DIOXIDE 29.6 MMOL/L (24-32); TOTAL PROTEIN 6.8 G/DL (6.4-8.2); eCRCL 64 ML/MIN; eGFR 67 ML/MIN
[2024-11-04 20:33] LABS: POTASSIUM 2.9 MMOL/L (3.5-5.1)
[2024-11-04] MEDS: potassium Cl 40MEQ/1/2NS 520ml 520 ML IV STA (21:09)
[2024-11-04] MEDS: magnesium sulf-water 2g/50mL 50 ML IV ONE (21:16)
[2024-11-04] MEDS: potassium CL 10mEq/100ml bag 100 ML IV STA (21:16)
[2024-11-04] MEDS: ondansetron/PF 4mg/2ml inj IV ONE (21:16)
[2024-11-04] MEDS: normal saline 1000ML IV soln IVB ONE (21:16)
[2024-11-04 21:38] LABS: MAGNESIUM 1.6 MG/DL (1.5-2.4)
[2024-11-04 22:10] LABS: ETHANOL < 10 MG/DL (<10)
[2024-11-04] MEDS: potassium Cl 20 mEq SR tablet PO ONE (22:36)
[2024-11-04] MEDS: magnesium oxide 400mg tablet PO ONE (22:36)
[2024-11-04 23:01] VITALS: BP 141/86
[2024-11-04 23:27] VITALS: PULSE 90; RESP 16; TEMP 97.9; O2SAT 100
== END | disposition home or self-care (01) ==
LOC: ER 19:17
DX: K52.9 Noninfective gastroenteritis and colitis, unspecified (principal); E87.6 Hypokalemia; E11.9 Type 2 diabetes mellitus without complications; G89.29 Other chronic pain; F32.A Depression, unspecified; F20.9 Schizophrenia, unspecified; F15.90 Other stimulant use, unspecified, uncomplicated; F11.90 Opioid use, unspecified, uncomplicated; F19.90 Other psychoactive substance use, unspecified, uncomplicated; F10.90 Alcohol use, unspecified, uncomplicated; Z60.2 Problems related to living alone; Z56.0 Unemployment, unspecified; Z59.00 Homelessness unspecified; Z88.8 Allergy status to other drugs, medicaments and biological substances; Z79.84 Long term (current) use of oral hypoglycemic drugs; Z79.899 Other long term (current) drug therapy
CPT/HCPCS: 36415; 80053; 83690; 83735; 85025; 96365; 96366; 96368; 96375; 99284; G0480; J2405; J3480; J7030; 80320

== ENCOUNTER 2024-11-16 00:07 | Emergency (ER) | payer MEDICARE, MEDICAID ==
[~2024-11-16] VITALS: Ht 172.7 cm; Wt 65.8 kg
[2024-11-16 00:20] VITALS: BP 175/100; PULSE 90; RESP 16; O2SAT 99
[2024-11-16] MEDS ORDERED: AMOX-115 PO (00:57)
[2024-11-16] MEDS ORDERED: CIPR10DR LEFT EAR (00:57)
[2024-11-16 01:02] VITALS: TEMP 98.4
[2024-11-16] MEDS: ondansetron 4mg rapidly disintigrating tab PO ONE (01:08)
[2024-11-16] MEDS: amox tr/potassium clavulanate 875/125mg TAB PO ONE (01:08)
== END 2024-11-16 01:13 | disposition home or self-care (01) ==
LOC: ER 00:08
DX: H66.92 Otitis media, unspecified, left ear (principal); F15.90 Other stimulant use, unspecified, uncomplicated; Z88.6 Allergy status to analgesic agent; Z79.899 Other long term (current) drug therapy
CPT/HCPCS: 99283

== ENCOUNTER 2024-11-20 21:26 | Emergency (ER) | payer MEDICARE, MEDICAID ==
[~2024-11-20] VITALS: Ht 177.8 cm; Wt 68.2 kg
[~2024-11-20 21:26] MED LIST changes: +AMOX-115 PO; +CIPR10DR LEFT EAR
[2024-11-20 23:04] VITALS: BP 130/69; PULSE 89; RESP 18; TEMP 98; O2SAT 98
== END 2024-11-20 23:05 | disposition home or self-care (01) ==
LOC: ER 21:27
DX: R23.8 Other skin changes (principal); F15.90 Other stimulant use, unspecified, uncomplicated; Z88.8 Allergy status to other drugs, medicaments and biological substances; Z79.2 Long term (current) use of antibiotics; Z79.899 Other long term (current) drug therapy; Z59.00 Homelessness unspecified; X31.XXXA Exposure to excessive natural cold, initial encounter
CPT/HCPCS: 99281

== ENCOUNTER 2024-11-24 08:31 | Emergency (ER) | payer MEDICARE, MEDICAID ==
[~2024-11-24] VITALS: Ht 177.8 cm; Wt 64.5 kg
[2024-11-24 08:33] VITALS: BP 122/66; PULSE 93; RESP 18; TEMP 97.9; O2SAT 100
[2024-11-24 10:42] LABS: BASOPHILS % (AUTO) 0.4 % (0-1); EOSINOPHILS # (AUTO) 0.2 X10'3 (0-0.9); EOSINOPHILS % (AUTO) 2.5 % (0-6); HEMATOCRIT 34.3 % (42.0-52.0); HEMOGLOBIN 11.9 g/dl (14.0-17.9); LYMPHOCYTES # (AUTO) 1.2 X10'3 (1.1-4.8); MEAN CORPUSCULAR HGB CONC 34.6 g/dL (33.0-36.5); MEAN CORPUSCULAR VOLUME 86.7 FL (78-98); MEAN PLATELET VOLUME 7.4 FL (7.4-10.4); MONOCYTES # (AUTO) 0.5 X10'3 (0-0.9); MONOCYTES % (AUTO) 7.7 % (2-12); NEUTROPHILS # (AUTO) 4.6 X10'3 (1.8-7.7); NEUTROPHILS % (AUTO) 70.4 % (42-75); PLATELET COUNT 339 X10'3 (140-440); RED BLOOD COUNT 3.95 X10'6 (4.70-6.10); WHITE BLOOD COUNT 6.5 X10'3 (4.5-11.0)
[2024-11-24 10:47] LABS: ALBUMIN 2.9 G/DL (3.4-5.0); ANION GAP 6 (8-16); BLOOD UREA NITROGEN 17 MG/DL (7-18); BUN/CREATININE RATIO 26.6 (10.0-20.0); CALCIUM 8.5 MG/DL (8.5-10.1); CHLORIDE 107 MMOL/L (99-107); CREATININE 0.64 MG/DL (0.60-1.10); GLUCOSE 112 MG/DL (70-104); POTASSIUM 3.8 MMOL/L (3.5-5.1); SODIUM 140 MMOL/L (135-145); TOTAL CARBON DIOXIDE 26.9 MMOL/L (24-32); eCRCL 111 ML/MIN; eGFR > 90 ML/MIN
== END 2024-11-24 11:45 | disposition home or self-care (01) ==
LOC: ER 08:32
DX: R19.7 Diarrhea, unspecified (principal); R11.2 Nausea with vomiting, unspecified; G89.29 Other chronic pain; E11.9 Type 2 diabetes mellitus without complications; F32.A Depression, unspecified; F20.9 Schizophrenia, unspecified; F10.90 Alcohol use, unspecified, uncomplicated; F15.90 Other stimulant use, unspecified, uncomplicated; F11.90 Opioid use, unspecified, uncomplicated; F19.90 Other psychoactive substance use, unspecified, uncomplicated; Z88.8 Allergy status to other drugs, medicaments and biological substances; Z79.899 Other long term (current) drug therapy; Z56.0 Unemployment, unspecified; Z59.00 Homelessness unspecified; Y90.9 Presence of alcohol in blood, level not specified
CPT/HCPCS: 36415; 80048; 85025; 87045; 87046; 89055; 99283

== ENCOUNTER 2024-11-29 09:39 | Inpatient (IN) | payer MEDICARE, MEDICAID ==
[~2024-11-29] VITALS: Ht 177.8 cm; Wt 66.0 kg
[~2024-11-29 09:39] MED LIST changes: -AMOX-115 PO; -CIPR10DR LEFT EAR
[2024-11-29] MEDS ORDERED: normal saline 1000ml 1,000 ML IV ONE (09:45)
[2024-11-29] MEDS ORDERED: ondansetron/PF 4mg/2ml inj IV ONE (09:45)
[2024-11-29] MEDS: ondansetron 4mg rapidly disintigrating tab PO ONE (10:11)
[2024-11-29] MEDS: morphine 4 MG/ML inj SYRINge IV ONE (10:35)
[2024-11-29] MEDS: normal saline 1000ML IV soln IVB ONE (10:36)
[2024-11-29 10:53] LABS: BASOPHILS # (AUTO) 0.1 X10'3 (0-0.2); BASOPHILS % (AUTO) 0.4 % (0-1); EOSINOPHILS # (AUTO) 0.2 X10'3 (0-0.9); EOSINOPHILS % (AUTO) 1.6 % (0-6); HEMATOCRIT 40.3 % (42.0-52.0); HEMOGLOBIN 13.4 g/dl (14.0-17.9); LYMPHOCYTES # (AUTO) 0.7 X10'3 (1.1-4.8); MEAN CORPUSCULAR HEMOGLOBIN 29.4 PG (27.0-31.0); MEAN CORPUSCULAR HGB CONC 33.3 g/dL (33.0-36.5); MEAN CORPUSCULAR VOLUME 88.4 FL (78-98); MONOCYTES # (AUTO) 0.5 X10'3 (0-0.9); MONOCYTES % (AUTO) 4.4 % (2-12); NEUTROPHILS # (AUTO) 10.3 X10'3 (1.8-7.7); NEUTROPHILS % (AUTO) 87.6 % (42-75); PLATELET COUNT 392 X10'3 (140-440); RED BLOOD COUNT 4.56 X10'6 (4.70-6.10); RED CELL DISTRIBUTION WIDTH 13.1 % (11.5-14.5); WHITE BLOOD COUNT 11.8 X10'3 (4.5-11.0)
[2024-11-29 11:38] LABS: ALANINE AMINOTRANSFERASE 28 U/L (12-78); ALBUMIN 3.3 G/DL (3.4-5.0); ALBUMIN/GLOBULIN RATIO 0.8 (1.1-1.5); ALKALINE PHOSPHATASE 68 IU/L (46-116); ANION GAP 7 (8-16); ASPARTATE AMINO TRANSFERASE 19 U/L (10-37); BILIRUBIN,TOTAL 0.6 MG/DL (0.1-1.0); BLOOD UREA NITROGEN 30 MG/DL (7-18); BUN/CREATININE RATIO 32.3 (10.0-20.0); CALCIUM 8.7 MG/DL (8.5-10.1); CHLORIDE 103 MMOL/L (99-107); CREATININE 0.93 MG/DL (0.60-1.10); GLUCOSE 154 MG/DL (70-104); POTASSIUM 3.4 MMOL/L (3.5-5.1); SODIUM 139 MMOL/L (135-145); TOTAL CARBON DIOXIDE 28.8 MMOL/L (24-32); TOTAL PROTEIN 7.6 G/DL (6.4-8.2); eCRCL 78 ML/MIN; eGFR 83 ML/MIN
[2024-11-29 11:52] LABS: BILIRUBIN,DIRECT 0.1 MG/DL (0-0.3); LIPASE 35 U/L (16-77)
[2024-11-29] MEDS ORDERED: iohexol 300mg/ml 100ml inj. ONE (12:05)
[2024-11-29] MEDS: normal saline 1000ml 1,000 ML IV ONE (14:03)
[2024-11-29] MEDS ORDERED: acetaminophen 325mg tablet PO PRN ×2 (14:10)
[2024-11-29] MEDS ORDERED: HYDROcodone/acetaminophen 5mg/325mg tablet PO PRN (14:10)
[2024-11-29] MEDS ORDERED: HYDROcodone/acetaminophen 10/325mg tab PO PRN (14:10)
[2024-11-29] MEDS ORDERED: ondansetron/PF 4mg/2ml inj IV PRN (14:10)
[2024-11-29] MEDS ORDERED: magnesium sulf-water 4G/100mL 100 ML IV PRN (14:10)
[2024-11-29] MEDS ORDERED: potassium Cl 40MEQ/1/2NS 520ml 520 ML IV PRN (14:10)
[2024-11-29] MEDS ORDERED: magnesium sulf-water 2g/50mL 50 ML IV PRN (14:10)
[2024-11-29] MEDS ORDERED: magnesium Cl slow-release 64mg tablet PO PRN (14:10)
[2024-11-29] MEDS ORDERED: morphine 2 MG/ML inj. syringe IV PRN ×2 (14:10)
[2024-11-29] MEDS ORDERED: LORazepam 2 mg/ml vial IV PRN (14:20)
[2024-11-29] MEDS: normal saline 1000ml 1,000 ML IV SCH (16:28)
[2024-11-29] MEDS: piperacillin/tazo 3.375gm/50ml 50 ML IV SCH (16:29)
[2024-11-29 16:54] LABS: BILIRUBIN,URINE NEGATIVE (Neg); CLARITY,URINE CLEAR (Clear); COLOR,URINE YELLOW (Yellow); GLUCOSE, URINE NEGATIVE (Neg); KETONES,URINE NEGATIVE (Neg); LEUKOCYTE ESTERASE ,URINE NEGATIVE (Neg); NITRITES, URINE NEGATIVE (Neg); OCCULT BLOOD,URINE NEGATIVE (Neg); PH,URINE 5.5 (4.8-8.0); PROTEIN,URINE NEGATIVE (Neg); UROBILINOGEN,URINE 0.2 E.U/dL (0.2-1.0)
[2024-11-29 17:05] LABS: URINE AMPHETAMINE SCREEN POSITIVE (Neg); URINE BARBITUATE SCREEN NEGATIVE (Neg); URINE BENZODIAZEPINES SCREEN NEGATIVE (Neg); URINE CANNABINOID SCREEN NEGATIVE (Neg); URINE COCAINE SCREEN NEGATIVE (Neg); URINE METHADONE SCREEN NEGATIVE (Neg); URINE OPIATE SCREEN POSITIVE (Neg); URINE PHENCYCLIDINE SCREEN NEGATIVE (Neg)
[2024-11-29 17:12] LABS: UA COLLECTION TYPE URINAL
[2024-11-29] MEDS: sincalide inj 1.3 MCG in normal saline 100ml IV soln 98.7 ML IV ONE (17:20)
[2024-11-29] MEDS ORDERED: piperacillin/tazo 4.5gm/100ml 100 ML IV SCH (20:00)
[2024-11-29] MEDS: heparin, porcine 5000 units/ml vial SQ SCH (21:31)
[2024-11-30 01:12] VITALS: BP 146/85; PULSE 83; RESP 22; TEMP 98.8; O2SAT 100
[2024-11-30 01:27] VITALS: RESP 22; O2SAT 100
[2024-11-30 06:30] VITALS: BP 116/77; PULSE 95; RESP 16; TEMP 98.3; O2SAT 99
[2024-11-30] MEDS: nicotine 14mg patch - 24hr TD SCH (07:23)
[2024-11-30] MEDS: multivitamins, therapeutics tablet PO SCH (07:27)
[2024-11-30 07:57] LABS: BASOPHILS % (AUTO) 0.7 % (0-1); EOSINOPHILS # (AUTO) 0.4 X10'3 (0-0.9); EOSINOPHILS % (AUTO) 5.6 % (0-6); HEMATOCRIT 32.4 % (42.0-52.0); LYMPHOCYTES # (AUTO) 1.1 X10'3 (1.1-4.8); LYMPHOCYTES % (AUTO) 15.9 % (21-51); MEAN CORPUSCULAR HEMOGLOBIN 29.9 PG (27.0-31.0); MEAN CORPUSCULAR HGB CONC 34.1 g/dL (33.0-36.5); MEAN CORPUSCULAR VOLUME 87.6 FL (78-98); MONOCYTES # (AUTO) 0.5 X10'3 (0-0.9); MONOCYTES % (AUTO) 7.7 % (2-12); NEUTROPHILS # (AUTO) 4.8 X10'3 (1.8-7.7); NEUTROPHILS % (AUTO) 70.1 % (42-75); PLATELET COUNT 294 X10'3 (140-440); RED CELL DISTRIBUTION WIDTH 13.4 % (11.5-14.5); WHITE BLOOD COUNT 6.8 X10'3 (4.5-11.0)
[2024-11-30 08:00] VITALS: RESP 16; O2SAT 99
[2024-11-30 08:35] LABS: ALANINE AMINOTRANSFERASE 24 U/L (12-78); ALBUMIN 2.4 G/DL (3.4-5.0); ALBUMIN/GLOBULIN RATIO 0.8 (1.1-1.5); ALKALINE PHOSPHATASE 51 IU/L (46-116); ANION GAP 8 (8-16); ASPARTATE AMINO TRANSFERASE 19 U/L (10-37); BILIRUBIN,TOTAL 0.7 MG/DL (0.1-1.0); BLOOD UREA NITROGEN 22 MG/DL (7-18); BUN/CREATININE RATIO 26.5 (10.0-20.0); CALCIUM 7.6 MG/DL (8.5-10.1); CHLORIDE 110 MMOL/L (99-107); CREATININE 0.83 MG/DL (0.60-1.10); GLUCOSE 83 MG/DL (70-104); LIPASE 34 U/L (16-77); MAGNESIUM 1.7 MG/DL (1.5-2.4); SODIUM 142 MMOL/L (135-145); TOTAL CARBON DIOXIDE 23.7 MMOL/L (24-32); TOTAL PROTEIN 5.6 G/DL (6.4-8.2); eCRCL 87 ML/MIN; eGFR > 90 ML/MIN
[2024-11-30 10:00] VITALS: BP 156/89; PULSE 76; RESP 16; TEMP 98.2; O2SAT 97
[2024-11-30] MEDS: sincalide inj 1.3 MCG in normal saline 100ml IV soln 98.7 ML IV ONE (10:08)
[2024-11-30] MEDS: potassium Cl 20 mEq SR tablet PO PRN ×2 (10:51→16:14)
[2024-11-30] MEDS: LORazepam 1 MG tablet PO PRN (10:59)
[2024-11-30 11:00] VITALS: BP 130/74; PULSE 92; RESP 16; TEMP 98.3; O2SAT 99
[2024-11-30] MEDS ORDERED: MULT-25 PO (16:45)
[2024-11-30] MEDS ORDERED: PANT-47 PO (16:45)
[2024-11-30] MEDS ORDERED: thiamine tablet PO (16:45)
[2024-11-30] MEDS ORDERED: CIPR-259 PO (16:45)
[2024-11-30] MEDS ORDERED: NALO4SPR BOTHNARES (21:20)
[2024-12-03] MEDS ORDERED: thiamine 100mg tablet PO SCH (08:00)
[2024-12-04] MEDS ORDERED: folic acid 1mg tablet PO SCH (08:00)
== END 2024-11-30 17:30 | disposition home or self-care (01) | DRG 392 ==
LOC: ER 09:40 → ED HOLD 14:01 → UNDOADMIN 14:01 → ED HOLD 14:10 → ORTHO 4S 11-30 00:58 → ED HOLD 11-30 00:58 → UNDODISIN 11-30 17:30
PROVIDERS: ADMIT Internal Medicine; ATTEND Internal Medicine
PROC: BW211ZZ Computerized Tomography (CT Scan) of Abdomen and Pelvis using Low Osmolar Contrast (ICD-10-PCS; 2024-11-29)
PROC: CF141ZZ Planar Nuclear Medicine Imaging of Gallbladder using Technetium 99m (Tc-99m) (ICD-10-PCS; principal; 2024-11-30)
DX: A08.4 Viral intestinal infection, unspecified (principal); Z59.00 Homelessness unspecified; E44.0 Moderate protein-calorie malnutrition; K80.20 Calculus of gallbladder without cholecystitis without obstruction; F20.9 Schizophrenia, unspecified; E11.9 Type 2 diabetes mellitus without complications; E87.6 Hypokalemia; F17.200 Nicotine dependence, unspecified, uncomplicated; F32.A Depression, unspecified; G89.29 Other chronic pain; F19.10 Other psychoactive substance abuse, uncomplicated; Z68.20 Body mass index [BMI] 20.0-20.9, adult; Z79.84 Long term (current) use of oral hypoglycemic drugs; Z79.899 Other long term (current) drug therapy; Z86.14 Personal history of Methicillin resistant Staphylococcus aureus infection; Z56.0 Unemployment, unspecified
CPT/HCPCS: 36415; 70450; 76700; 78227; 80048; 80053; 80076; 80305; 81003; 83605; 83690; 83735; 84100; 84145; 84484; 85025; 86140; 87040; 87081; 93005; 93306; 99283; 99285; A9537; G0378; J1644; J2270; J2543; J2805; J7030; Q9967

== ENCOUNTER 2024-11-30 19:51 | Emergency (ER) | payer MEDICARE, MEDICAID ==
[~2024-11-30] VITALS: Ht 177.8 cm; Wt 6.8 kg
[~2024-11-30 19:51] MED LIST changes: +CIPR-259 PO; +MULT-25 PO; +PANT-47 PO; +thiamine tablet PO
[2024-11-30 20:15] VITALS: TEMP 98.8
[2024-11-30] MEDS ORDERED: NALO4SPR BOTHNARES (21:20)
[2024-11-30 22:10] VITALS: BP 143/95; PULSE 92; O2SAT 90
[2024-11-30 22:37] VITALS: RESP 18
== END 2024-11-30 22:39 | disposition home or self-care (01) ==
LOC: ER 19:52
DX: T40.2X1A Poisoning by other opioids, accidental (unintentional), initial encounter (principal); G89.29 Other chronic pain; F17.210 Nicotine dependence, cigarettes, uncomplicated; F15.90 Other stimulant use, unspecified, uncomplicated; F11.90 Opioid use, unspecified, uncomplicated; F19.90 Other psychoactive substance use, unspecified, uncomplicated; F10.90 Alcohol use, unspecified, uncomplicated; F32.A Depression, unspecified; F20.9 Schizophrenia, unspecified; E11.9 Type 2 diabetes mellitus without complications; Z88.8 Allergy status to other drugs, medicaments and biological substances; Z79.899 Other long term (current) drug therapy; Z59.00 Homelessness unspecified; Z56.0 Unemployment, unspecified; Y90.9 Presence of alcohol in blood, level not specified; Y92.89 Other specified places as the place of occurrence of the external cause
CPT/HCPCS: 99283

== ENCOUNTER 2024-12-18 17:19 | Emergency (ER) | payer MEDICARE, MEDICAID ==
[~2024-12-18] VITALS: Ht 177.8 cm; Wt 62.6 kg
[~2024-12-18 17:19] MED LIST changes: -BACI28OI9 TP; -CIPR-259 PO; -METF-436 PO; +NALO4SPR BOTHNARES; -UNABLE TO OBTAIN
[2024-12-18 17:23] VITALS: BP 173/107; PULSE 107; RESP 16; TEMP 99.1; O2SAT 99
== END 2024-12-18 20:45 | disposition left against medical advice (07) ==
LOC: ER 17:19
DX: L02.414 Cutaneous abscess of left upper limb (principal); T63.301A Toxic effect of unspecified spider venom, accidental (unintentional), initial encounter; F32.A Depression, unspecified; F20.9 Schizophrenia, unspecified; E11.9 Type 2 diabetes mellitus without complications; F10.90 Alcohol use, unspecified, uncomplicated; Z88.8 Allergy status to other drugs, medicaments and biological substances; F12.90 Cannabis use, unspecified, uncomplicated; F15.90 Other stimulant use, unspecified, uncomplicated; Y90.9 Presence of alcohol in blood, level not specified; Y92.89 Other specified places as the place of occurrence of the external cause
CPT/HCPCS: 99281

== ENCOUNTER 2024-12-21 04:52 | Emergency (ER) | payer MEDICARE, MEDICAID ==
[~2024-12-21] VITALS: Ht 177.8 cm; Wt 64.1 kg
[2024-12-21 04:54] VITALS: TEMP 97.7
[2024-12-21] MEDS ORDERED: CEPH-585 PO (05:28)
[2024-12-21] MEDS ORDERED: DOXY-462 PO (05:28)
[2024-12-21] MEDS: DOXYCYCLINE 100MG CAPSULE PO STA (06:03)
[2024-12-21] MEDS: cephalexin 250mg capsule PO ONE (06:03)
[2024-12-21] MEDS: ondansetron 4mg rapidly disintigrating tab PO ONE (06:04)
[2024-12-21] MEDS: bacitracin 15gm ointment TP ONE (06:04)
[2024-12-21 06:12] VITALS: BP 159/96; PULSE 112; RESP 16; O2SAT 97
== END 2024-12-21 06:19 | disposition home or self-care (01) ==
LOC: ER 04:53
DX: L03.114 Cellulitis of left upper limb (principal); F15.90 Other stimulant use, unspecified, uncomplicated; Z88.6 Allergy status to analgesic agent; Z79.2 Long term (current) use of antibiotics; Z79.899 Other long term (current) drug therapy
CPT/HCPCS: 10060; 99284; A6253; A6258; A6402; Z7610; A6449

== ENCOUNTER 2024-12-29 09:42 | Emergency (ER) | payer MEDICARE, MEDICAID ==
[~2024-12-29] VITALS: Ht 167.6 cm; Wt 65.7 kg
[~2024-12-29 09:42] MED LIST changes: +CEPH-585 PO; +DOXY-462 PO
[2024-12-29 10:25] LABS: BASOPHILS # (AUTO) 0.1 X10'3 (0-0.2); BASOPHILS % (AUTO) 1.1 % (0-1); EOSINOPHILS # (AUTO) 0.2 X10'3 (0-0.9); EOSINOPHILS % (AUTO) 2.2 % (0-6); HEMATOCRIT 36.8 % (42.0-52.0); HEMOGLOBIN 12.3 g/dl (14.0-17.9); LYMPHOCYTES # (AUTO) 1.5 X10'3 (1.1-4.8); LYMPHOCYTES % (AUTO) 15.6 % (21-51); MEAN CORPUSCULAR HEMOGLOBIN 28.7 PG (27.0-31.0); MEAN CORPUSCULAR HGB CONC 33.4 g/dL (33.0-36.5); MEAN PLATELET VOLUME 7.1 FL (7.4-10.4); MONOCYTES # (AUTO) 0.4 X10'3 (0-0.9); MONOCYTES % (AUTO) 4.5 % (2-12); NEUTROPHILS # (AUTO) 7.4 X10'3 (1.8-7.7); NEUTROPHILS % (AUTO) 76.6 % (42-75); PLATELET COUNT 563 X10'3 (140-440); RED BLOOD COUNT 4.27 X10'6 (4.70-6.10); RED CELL DISTRIBUTION WIDTH 13.7 % (11.5-14.5); WHITE BLOOD COUNT 9.7 X10'3 (4.5-11.0)
[2024-12-29] MEDS ORDERED: CEPH-585 PO (11:24)
[2024-12-29] MEDS ORDERED: SULF1TAB49 PO (11:24)
[2024-12-29 11:47] LABS: ANION GAP 3 (8-16); BLOOD UREA NITROGEN 15 MG/DL (7-18); BUN/CREATININE RATIO 22.1 (10.0-20.0); CALCIUM 9.1 MG/DL (8.5-10.1); CHLORIDE 102 MMOL/L (99-107); CREATININE 0.68 MG/DL (0.60-1.10); GLUCOSE 160 MG/DL (70-104); POTASSIUM 3.9 MMOL/L (3.5-5.1); SODIUM 137 MMOL/L (135-145); TOTAL CARBON DIOXIDE 31.7 MMOL/L (24-32); eCRCL 103 ML/MIN; eGFR > 90 ML/MIN
[2024-12-29] MEDS: CefTRIAXone/D5W-Rocephin 1gm 50 ML IV ONE (11:54)
[2024-12-29 12:54] VITALS: BP 142/76; PULSE 85; RESP 18; TEMP 98.6; O2SAT 99
== END 2024-12-29 12:45 | disposition home or self-care (01) ==
LOC: ER 09:42
DX: L03.114 Cellulitis of left upper limb (principal); T69.9XXA Effect of reduced temperature, unspecified, initial encounter; E11.9 Type 2 diabetes mellitus without complications; F32.A Depression, unspecified; F20.9 Schizophrenia, unspecified; F12.90 Cannabis use, unspecified, uncomplicated; F17.210 Nicotine dependence, cigarettes, uncomplicated; F15.90 Other stimulant use, unspecified, uncomplicated; Z88.8 Allergy status to other drugs, medicaments and biological substances; Y90.9 Presence of alcohol in blood, level not specified; Y92.89 Other specified places as the place of occurrence of the external cause
CPT/HCPCS: 36415; 71045; 80048; 83605; 84145; 85025; 87040; 96365; 99285; J0696; J7030; Z7610

== ENCOUNTER 2025-02-15 13:54 | Emergency (ER) | payer MEDICARE, MEDICAID ==
[~2025-02-15] VITALS: Ht 177.8 cm; Wt 63.9 kg
[~2025-02-15 13:54] MED LIST changes: -CEPH-585 PO; -DOXY-462 PO
[2025-02-15 14:03] VITALS: TEMP 98.8
[2025-02-15] MEDS: loperamide 2mg capsule PO ONE (15:20)
[2025-02-15 15:21] VITALS: BP 133/83; PULSE 113; RESP 16; O2SAT 94
[2025-02-15] MEDS ORDERED: LOPE-144 PO (15:29)
== END 2025-02-15 15:49 | disposition home or self-care (01) ==
LOC: ER 13:55
DX: R19.7 Diarrhea, unspecified (principal); F15.90 Other stimulant use, unspecified, uncomplicated; F11.90 Opioid use, unspecified, uncomplicated; F19.90 Other psychoactive substance use, unspecified, uncomplicated; F10.90 Alcohol use, unspecified, uncomplicated; E11.9 Type 2 diabetes mellitus without complications; F32.A Depression, unspecified; G89.29 Other chronic pain; Y90.9 Presence of alcohol in blood, level not specified; Z88.8 Allergy status to other drugs, medicaments and biological substances; Z79.899 Other long term (current) drug therapy; Z60.2 Problems related to living alone; Z56.0 Unemployment, unspecified; Z59.00 Homelessness unspecified
CPT/HCPCS: 99283

== ENCOUNTER 2025-03-26 15:05 | Emergency (ER) | payer MEDICARE, MEDICAID ==
[~2025-03-26] VITALS: Ht 172.7 cm; Wt 65.1 kg
[~2025-03-26 15:05] MED LIST changes: +LOPE-144 PO
[2025-03-26 15:18] VITALS: BP 151/85; PULSE 91; RESP 18; TEMP 97.8; O2SAT 95
--- NOTE | 2025-03-26 15:32 | Physician Documentation ---
History of Present Illness ~ Chief Complaint: Flu Symptoms Stated Complaint: FLU SYMPTOMS Time Seen by MD: 15:43 Primary Medical Doctor: None HPI This is a 60-year-old male who presents with one day of nausea, vomiting, and diarrhea along with report of stomach upset. Patient reports no other acute symptoms or concerns. Medication Reconciliation Allergies: Coded Allergies: niacin (Verified Allergy, Unknown, 03/26/25) PT HAS TOLERATED FOLIC ACID AND THIAMINE 2023 Scheduled Loperamide HCl (Imodium A-D), 1 TAB PO 5XD Metoprolol Tartrate (Lopressor tablet), 12.5 MG PO BID Multivitamin with Folic Acid (Thera Tablet), 1 EACH PO Q24H Naloxone HCl (Narcan), 1 SPRAYS BOTHNARES ONCE Pantoprazole Sodium (PROTONIX tablet), 40 MG PO DAILY [thiamine tablet], 100 MG PO DAILY Scheduled PRN Ibuprofen (Ibuprofen), 1 TAB PO Q8H PRN for pain Loperamide Hcl/Simethicone (Imodium Ms Relief Caplet), 1 EACH PO BID PRN for diarrhea ONDANSETRON ODT 4mg tablet (Ondansetron Odt), 1 TABLET PO Q6H PRN for nausea/vomiting ONDANSETRON ODT 4mg tablet (Ondansetron Odt), 1 TAB PO Q6H PRN PRN for nausea/vomiting Past Medical History Past Medical History: No Pertinent History, Diabetes, Chronic Pain, MRSA Abscess, Depression, Schizophrenia Past Surgical History: noncontributory Alcohol Use: Heavy Drug Use: methamphetamine, heroin, other Lives with: Alone Lives In: Homeless Occupation: unemployed Review of Systems ROS Nausea, vomiting, and diarrhea as stated above in the HPI, otherwise all systems are reviewed and negative. Physical Exam Vital Signs: Temperature: 97.8, Source: Temporal, Heart Rate: 91, Respiratory Rate: 18, BP: 151/85, Pulse Oximetry: 95, Weight: 65.100 Physical Exam VITALS: Reviewed and as above. GENERAL: Alert, nontoxic appearing, no apparent distress. 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 Tablet (Zofran Odt T (03/26/25 16:45) Cbc/Diff (03/26/25 16:41) CMP (03/26/25 16:41) Medications Received in ER Medications (Trade) Dose Ordered Sig/Matthew Route PRN Reason Start Time Stop Time Status Last Admin Dose Admin (Zofran ODT tablet) 4 mg ONCE ONCE PO 03/26/25 16:45 03/26/25 16:46 DC 03/26/25 17:54 4 MG Vital Signs 03/26/25 15:18 Temp 97.8 Pulse 91 Resp 18 B/P (MAP) 151/85 Pulse Ox 95 Laboratory Tests Test 03/26/25 16:48 White Blood Count 9.2 Red Blood Count 3.97 L Hemoglobin 11.1 L Hematocrit 33.4 L Mean Corpuscular Volume 84.3 Mean Corpuscular Hemoglobin 27.9 Mean Corpuscular Hemoglobin Concent 33.1 Red Cell Distribution Width 15.2 H Platelet Count 301 Mean Platelet Volume 7.5 Neutrophils (%) (Auto) 71.8 Lymphocytes (%) (Auto) 15.5 L Monocytes (%) (Auto) 9.0 Eosinophils (%) (Auto) 3.2 Basophils (%) (Auto) 0.5 Neutrophils # (Auto) 6.6 Lymphocytes # (Auto) 1.4 Monocytes # (Auto) 0.8 Eosinophils # (Auto) 0.3 Basophils # (Auto) 0.0 CBC Comment Sodium Level 141 Potassium Level 4.2 Chloride Level 106 Carbon Dioxide Level 27.0 Anion Gap 8 Blood Urea Nitrogen 27 H Creatinine 0.84 Estimated GFR/1.73 m2 > 90 BUN/Creatinine Ratio 32.1 H Glucose Level 105 H Calcium Level 8.6 Total Bilirubin 0.1 Aspartate Amino Transf (AST/SGOT) 23 Alanine Aminotransferase (ALT/SGPT) 32 Alkaline Phosphatase 57 Total Protein 6.1 L Albumin 2.9 L Globulin 3.2 Albumin/Globulin Ratio 0.9 L Chemistry Comments Medical Decision Making Findings This 60-year-old male presents with one day of nausea, vomiting, and diarrhea without abdominal pain, physical exam was benign with no abdominal tenderness, labs were reassuring without evidence of metabolic or electrolyte abnormality. Patient medicated with Zofran for nausea and provided careful home care and return to care instructions which he verbalized understanding of, patient provided a prescription for Zofran to manage nausea and vomiting outpatient to maintain proper oral intake. Patient is hemodynamically stable and appropriate for outpatient follow up. Diff Dx Pain:Considerations: Include: Appendicitis, Bowel obstruction, Cholangitis, Cholelithasis, Constipation, Esophagitis, Gastritis, Gastroenteritis, GI hemorrhage, Inflammatory BD, Ischemic bowel, Pancreatitis Diff Dx N/V/D:Considerations: Include: Dehydration, Diarrhea - bacterial, Diarrhea - parasitic, Diarrhea - viral, Diverticulitis, Diverticulosis, Electrolyte imbalance, Food poisoning, GE reflux, Hypovolemia, Hypotension Departure Time of Disposition: 17:27 Disposition: 01 HOME / SELF CARE / HOMELESS Impression: Primary Impression: Nausea vomiting and diarrhea Condition: Improved Discharge Instructions: Diarrhea, Adult, [id number], Food Choices to Help Relieve Diarrhea, Adult, Nausea and Vomiting, Adult, [id number] Additional Instructions: Please take the Zofran as needed to help with your nausea and vomiting, stay well hydrated with non alcoholic non caffeinated fluids, begin eating solid food as tolerated. Please follow up with your primary care provider or the [facility] in the next few days. Please return to the emergency department for any new or worsening concerning symptoms including but not limited to the inability to keep food or liquids down, he develop bloody vomiting or bloody diarrhea, or if you develop a fever or over 100.4 that does not lower with ibuprofen or Tylenol. The diarrhea may take several days to resolve however if it does not resolve within next 3-5 days please return to the medical provider of your choice. Referrals: NO PRIMARY CARE PROVIDER (PCP) Prescriptions ONDANSETRON ODT 4mg tablet (ONDANSETRON ODT) 4 Mg Tab.rapdis 1 TAB PO Q6H PRN PRN for nausea/vomiting for 4 Days, #16 TAB 0 Refills Prov: ROSHAN GUAMAN 03/26/25 Education Educated: Patient Educated regarding: diagnosis, treatment, prognosis, need for follow up Signature Scribe Signature: No scribe Attestation: The note accurately reflects work and decisions made by me.CECE Shearer 03/26/25 21:25 ROSHAN GUAMAN Mar 26, 2025 15:31
[2025-03-26 17:01] LABS: BASOPHILS % (AUTO) 0.5 % (0-1); EOSINOPHILS # (AUTO) 0.3 X10'3 (0-0.9); EOSINOPHILS % (AUTO) 3.2 % (0-6); HEMATOCRIT 33.4 % (42.0-52.0); HEMOGLOBIN 11.1 g/dl (14.0-17.9); LYMPHOCYTES # (AUTO) 1.4 X10'3 (1.1-4.8); LYMPHOCYTES % (AUTO) 15.5 % (21-51); MEAN CORPUSCULAR HEMOGLOBIN 27.9 PG (27.0-31.0); MEAN CORPUSCULAR HGB CONC 33.1 g/dL (33.0-36.5); MEAN CORPUSCULAR VOLUME 84.3 FL (78-98); MEAN PLATELET VOLUME 7.5 FL (7.4-10.4); MONOCYTES # (AUTO) 0.8 X10'3 (0-0.9); NEUTROPHILS # (AUTO) 6.6 X10'3 (1.8-7.7); NEUTROPHILS % (AUTO) 71.8 % (42-75); PLATELET COUNT 301 X10'3 (140-440); RED BLOOD COUNT 3.97 X10'6 (4.70-6.10); RED CELL DISTRIBUTION WIDTH 15.2 % (11.5-14.5); WHITE BLOOD COUNT 9.2 X10'3 (4.5-11.0)
[2025-03-26 17:18] LABS: ALANINE AMINOTRANSFERASE 32 U/L (12-78); ALBUMIN 2.9 G/DL (3.4-5.0); ALBUMIN/GLOBULIN RATIO 0.9 (1.1-1.5); ALKALINE PHOSPHATASE 57 IU/L (46-116); ANION GAP 8 (8-16); ASPARTATE AMINO TRANSFERASE 23 U/L (10-37); BILIRUBIN,TOTAL 0.1 MG/DL (0.1-1.0); BLOOD UREA NITROGEN 27 MG/DL (7-18); BUN/CREATININE RATIO 32.1 (10.0-20.0); CALCIUM 8.6 MG/DL (8.5-10.1); CHLORIDE 106 MMOL/L (99-107); CREATININE 0.84 MG/DL (0.60-1.10); GLUCOSE 105 MG/DL (70-104); POTASSIUM 4.2 MMOL/L (3.5-5.1); SODIUM 141 MMOL/L (135-145); TOTAL PROTEIN 6.1 G/DL (6.4-8.2); eCRCL 84 ML/MIN; eGFR > 90 ML/MIN
[2025-03-26] MEDS ORDERED: ONDA-243 PO (17:26)
[2025-03-26] MEDS: ondansetron 4mg rapidly disintigrating tab PO ONE (17:54)
== END 2025-03-26 17:59 | disposition home or self-care (01) ==
LOC: ER 15:06
DX: R11.2 Nausea with vomiting, unspecified (principal); R19.7 Diarrhea, unspecified; Z88.8 Allergy status to other drugs, medicaments and biological substances
CPT/HCPCS: 36415; 80053; 85025; 99283

== ENCOUNTER 2025-04-29 12:27 | Emergency (ER) | payer MEDICARE, MEDICAID ==
[~2025-04-29] VITALS: Ht 177.8 cm; Wt 59.2 kg
[2025-04-29] MEDS: DOXYCYCLINE 100MG CAPSULE PO STA (14:13)
[2025-04-29] MEDS: ibuprofen tablet 400 MG TABLET PO ONE (14:13)
[2025-04-29] MEDS ORDERED: DOXY100C43 PO (14:15)
[2025-04-29] MEDS ORDERED: IBUP-1984 PO (14:15)
--- NOTE | 2025-04-29 14:15 | Physician Documentation ---
History of Present Illness General Chief Complaint: Bite-insect Stated Complaint: BUG BITE Time Seen by MD: 12:41 Primary Medical Doctor: litzy huang History of Present Illness Initial Comments Presents to the emergency department with a small abscess to the left shoulder. Patient is unhealthy. Declines wanting incision and drainage. Request p.o. antibiotics only. Denies wanting IM injection. Would like ibuprofen additionally. Medication Reconciliation Allergies: Coded Allergies: niacin (Verified Allergy, Unknown, 04/29/25) PT HAS TOLERATED FOLIC ACID AND THIAMINE 2023 Scheduled Loperamide HCl (Imodium A-D), 1 TAB PO 5XD Metoprolol Tartrate (Lopressor tablet), 12.5 MG PO BID Multivitamin with Folic Acid (Thera Tablet), 1 EACH PO Q24H Naloxone HCl (Narcan), 1 SPRAYS BOTHNARES ONCE Pantoprazole Sodium (PROTONIX tablet), 40 MG PO DAILY [thiamine tablet], 100 MG PO DAILY Scheduled PRN Ibuprofen (Ibuprofen), 1 TAB PO Q8H PRN for pain Loperamide Hcl/Simethicone (Imodium Ms Relief Caplet), 1 EACH PO BID PRN for diarrhea ONDANSETRON ODT 4mg tablet (Ondansetron Odt), 1 TABLET PO Q6H PRN for nausea/vomiting ONDANSETRON ODT 4mg tablet (Ondansetron Odt), 1 TAB PO Q6H PRN PRN for nausea/vomiting Past Medical History Past Medical History: No Pertinent History, Diabetes, Chronic Pain, MRSA Abscess, Depression, Schizophrenia Past Surgical History: noncontributory Smoking: Cigarettes Alcohol Use: Heavy Drug Use: methamphetamine, heroin, other Lives with: Alone Lives In: Homeless Occupation: unemployed Review of Systems All Other Systems at this time: Reviewed and Negative Constitutional: Denies: fever, chills Integumentary Left scapula abscess 2 cm x 1 cm Physical Exam Physical Exam Vital Signs: RN Vital Signs have been reviewed: Yes, Temperature: 98.1, Heart Rate: 106, Respiratory Rate: 16, BP: 147/71, Pulse Oximetry: 99, Weight: 59.200 Oxygen Flow Rate: 0 General Appearance: alert, mild distress Head: normal inspection Face: normal inspection Pupils/EOM/Fundus: PERRLA Respiratory: no respiratory distress Cardiovascular: regular rate, rhythm Back: other (2 cm x 1 cm fluctuant abscess on erythema at base of the left scapula) Neurologic: oriented x4 Motor / Sensory: no motor deficit, no sensory deficit Psychiatric: normal mood/affect Skin: normal color, warm/dry Progress Results/Orders Results/Orders Orders - KRISHNA WELLER Doxycycline 100mg Capsule (Vibramycin 10 (04/29/25 14:08) Ibuprofen Tablet (Motrin Tablet) (04/29/25 14:10) Vital Signs 04/29/25 12:31 Temp 98.1 Pulse 106 Resp 16 B/P (MAP) 147/71 Pulse Ox 99 O2 Flow Rate 0 Medical Decision Making Differential Diagnosis Examination history consistent with left scapula abscess that would likely benefit from incision and drainage the patient is adamant to not have acidic and drainage. Provided 1st dose toxic likes eating in the emergency department with ibuprofen. Patient recommended to apply warm moist heat and follow up with primary care and return if worse. Safely discharged from the emergency department. Departure Disposition: HOME / SELF CARE / HOMELESS Impression: Primary Impression: Abscess Condition: Stable Discharge Instructions: Abscess, Care After Additional Instructions: Please blade warm moist heat. You received 1st dose antibiotic in the emergency department along with ibuprofen. Obtain prescription in the pharmacy and return if worse. Thank you [facility]. Referrals: NO PRIMARY CARE PROVIDER (PCP) Prescriptions Ibuprofen* (Motrin*) 400 Mg Tablet 400 MG PO Q6H for 10 Days, #30 TAB Prov: KRISHNA WELLER 04/29/25 Doxycycline Monohydrate (Doxycycline Monohydrate) 100 Mg Capsule 100 MG PO BID, #14 CAP may sub doxycycline hyclate or azithromycin z-pack as prescribed Prov: KRISHNA WELLER 04/29/25 Education Educated: Patient Educated regarding: diagnosis, treatment Signature Scribe Signature: . Attestation: . KRISHNA WELLER Apr 29, 2025 14:15
[2025-04-29 14:24] VITALS: BP 109/87; PULSE 102; RESP 16; TEMP 98.1; O2SAT 98
== END 2025-04-29 14:32 | disposition home or self-care (01) ==
LOC: ER 12:27
DX: L02.414 Cutaneous abscess of left upper limb (principal); F32.A Depression, unspecified; F20.9 Schizophrenia, unspecified; F15.90 Other stimulant use, unspecified, uncomplicated; F11.90 Opioid use, unspecified, uncomplicated; F17.210 Nicotine dependence, cigarettes, uncomplicated
CPT/HCPCS: 99283

== ENCOUNTER 2025-07-08 09:09 | Emergency (ER) | payer MEDICARE, MEDICAID ==
[~2025-07-08] VITALS: Ht 172.7 cm; Wt 56.2 kg
[2025-07-08 09:18] VITALS: BP 124/89; PULSE 93; RESP 18; O2SAT 97
--- NOTE | 2025-07-08 09:25 | Physician Documentation ---
History of Present Illness ~ Chief Complaint: Rash Stated Complaint: RASH Time Seen by MD: 09:25 Primary Medical Doctor: litzy De Los Santos A 60 male presents to the ED with a complaint of a rash on his left lower extremity. States this developed over the last 3 days. reports pain Denies fevers. Day of Onset: Jul 08, 2025 Medication Reconciliation Allergies: Coded Allergies: niacin (Verified Allergy, Unknown, 07/08/25) PT HAS TOLERATED FOLIC ACID AND THIAMINE 2023 Scheduled Cephalexin*Monohydrate* (Keflex*), 1 CAP PO QID Loperamide HCl (Imodium A-D), 1 TAB PO 5XD Metoprolol Tartrate (Lopressor tablet), 12.5 MG PO BID Multivitamin with Folic Acid (Thera Tablet), 1 EACH PO Q24H Naloxone HCl (Narcan), 1 SPRAYS BOTHNARES ONCE Pantoprazole Sodium (PROTONIX tablet), 40 MG PO DAILY Sulfamethoxazole/Trimethoprim (Septra Ds Tab), 1 TAB PO Q12H [thiamine tablet], 100 MG PO DAILY Scheduled PRN Ibuprofen (Ibuprofen), 1 TAB PO Q8H PRN for pain Loperamide Hcl/Simethicone (Imodium Ms Relief Caplet), 1 EACH PO BID PRN for diarrhea ONDANSETRON ODT 4mg tablet (Ondansetron Odt), 1 TABLET PO Q6H PRN for nausea/vomiting ONDANSETRON ODT 4mg tablet (Ondansetron Odt), 1 TAB PO Q6H PRN PRN for nausea/vomiting Past Medical History Past Medical History: No Pertinent History, Diabetes, Chronic Pain, MRSA Abscess, Depression, Schizophrenia Past Surgical History: noncontributory Alcohol Use: Heavy Drug Use: methamphetamine, heroin, other Lives with: Alone Lives In: Homeless Occupation: unemployed Review of Systems All Other Systems at this time: Reviewed and Negative ROS As stated above in the HPI, otherwise all systems are reviewed and negative. Physical Exam Physical Exam General: Alert, no apparent distress. Extremities: Normal range of motion, no deformity. right LLE rash with pustules Neurologic: Oriented x4. Psychiatric: Normal mood and affect. Skin: Normal color, warm and dry. No edema, no ecchymosis. Progress Results/Orders Results/Orders Completed Orders - MICHAEL HEARD NP Cephalexin Capsule (Keflex Capsule) (07/08/25 09:25) Sulfamethox/Trimetho. Ds Tab (Septra Ds (07/08/25 09:25) Vital Signs 07/08/25 07/08/25 09:18 09:50 Temp 98.4 98.4 Pulse 93 Resp 18 B/P (MAP) 124/89 Pulse Ox 97 Medical Decision Making Findings Treating patient for a suspected folliculitis. hemodynamically stable. will start him on oral antibiotics Differential Dx:Considerations: Include: Abscess, AIDS/HIV, Anthrax (cutaneous), Atopic dermatitis, Candidiasis, Contact dermatitis, Drug reaction, Erythema multiforme, Erysipelas, Gangrene, Herpes zoster, Herpes simplex, Hidradenitis suppurativa, Impetigo, Intertrigo, Lymes disease, Molluscum contagiosum, Osteomyelitis, Pediculosis, Pityriasis rosea, Psoriaisis, RMSF, Rosacea, Scabies, Scarlet fever, Tinea, Urticaria, Varicella, Viral exanthema, Other Departure Disposition: HOME / SELF CARE / HOMELESS Impression: Primary Impression: Skin irritation Additional Impression: Infection of skin and subcutaneous tissue Discharge Instructions: Cellulitis, Adult Referrals: NO PRIMARY CARE PROVIDER (PCP) Prescriptions Cephalexin*Monohydrate* (Keflex*) 500 Mg Capsule 1 CAP PO QID, #40 CAP Prov: MICHAEL HEARD NP 07/08/25 Sulfamethoxazole/Trimethoprim (Septra Ds Tab) 800 Mg/160 Mg Tablet 1 TAB PO Q12H for 10 Days, #20 TAB Prov: MICHAEL HEARD NP 07/08/25 Signature Scribe Signature: h Attestation: Scribed for Michael Heard [employer] by Michael King NP . 07/08/25 18:16 MICHAEL HEARD NP Jul 08, 2025 09:25
[2025-07-08] MEDS ORDERED: CEPH-585 PO (09:40)
[2025-07-08] MEDS ORDERED: SULF1TAB45 PO (09:40)
[2025-07-08] MEDS: sulfamethoxazole/trimethoprim DS (800/160mg) tablet PO ONE (09:43)
[2025-07-08 09:50] VITALS: TEMP 98.4
== END 2025-07-08 09:55 | disposition home or self-care (01) ==
LOC: ER 09:09
DX: L08.9 Local infection of the skin and subcutaneous tissue, unspecified (principal); F15.90 Other stimulant use, unspecified, uncomplicated; F11.90 Opioid use, unspecified, uncomplicated; F19.90 Other psychoactive substance use, unspecified, uncomplicated; F41.9 Anxiety disorder, unspecified; F32.A Depression, unspecified; F20.9 Schizophrenia, unspecified; Z88.8 Allergy status to other drugs, medicaments and biological substances; Z56.0 Unemployment, unspecified; Z59.00 Homelessness unspecified; Z60.2 Problems related to living alone; Z79.899 Other long term (current) drug therapy
CPT/HCPCS: 99283

== ENCOUNTER 2025-08-16 09:46 | Emergency (ER) | payer MEDICARE, MEDICAID ==
[~2025-08-16] VITALS: Ht 177.8 cm; Wt 62.5 kg
[~2025-08-16 09:46] MED LIST changes: +CEPH-585 PO
[2025-08-16 09:51] VITALS: BP 146/93; PULSE 97; RESP 18; O2SAT 97
--- NOTE | 2025-08-16 10:48 | Physician Documentation ---
History of Present Illness ~ Chief Complaint: Wound Stated Complaint: WOUNDS Time Seen by MD: 10:02 Primary Medical Doctor: litzy huang Source: patient Mode of Arrival: POV Exam Limitations: no limitations HPI 60-year-old male who is homeless here with wounds on his left arm that he states started about a week ago. He states the wounds are painful. He also reports some wounds on his legs. No pre arrival treatment. He is requesting some an tibiotics. No itching. No fever, chills or difficulty moving his arm or leg where the wounds are. No drainage from the wounds. No injury that caused these wounds he is not sure how they started but thinks that they are bug bites. Tetanus within 5 years?: No Medication Reconciliation Allergies: Coded Allergies: niacin (Verified Allergy, Unknown, 07/08/25) PT HAS TOLERATED FOLIC ACID AND THIAMINE 2023 Scheduled Cephalexin*Monohydrate* (Keflex*), 1 CAP PO QID Loperamide HCl (Imodium A-D), 1 TAB PO 5XD Metoprolol Tartrate (Lopressor tablet), 12.5 MG PO BID Multivitamin with Folic Acid (Thera Tablet), 1 EACH PO Q24H Naloxone HCl (Narcan), 1 SPRAYS BOTHNARES ONCE Pantoprazole Sodium (PROTONIX tablet), 40 MG PO DAILY [thiamine tablet], 100 MG PO DAILY Scheduled PRN Ibuprofen (Ibuprofen), 1 TAB PO Q8H PRN for pain Loperamide Hcl/Simethicone (Imodium Ms Relief Caplet), 1 EACH PO BID PRN for diarrhea ONDANSETRON ODT 4mg tablet (Ondansetron Odt), 1 TABLET PO Q6H PRN for nausea/vomiting ONDANSETRON ODT 4mg tablet (Ondansetron Odt), 1 TAB PO Q6H PRN PRN for nausea/vomiting Past Medical History Past Medical History: No Pertinent History, Diabetes, Chronic Pain, MRSA Abscess, Depression, Schizophrenia Past Surgical History: noncontributory Alcohol Use: Heavy Drug Use: methamphetamine, heroin, other Lives with: Alone Lives In: Homeless Occupation: unemployed Review of Systems All Other Systems at this time: Reviewed and Negative Physical Exam Vital Signs: Temperature: 97.9, Source: Temporal, Heart Rate: 97, Respiratory Rate: 18, BP: 146/93, Pulse Oximetry: 97, Weight: 62.500 Oxygen Flow Rate: 0 Physical Exam General Appearance: Alert, WD/WN. NAD. HEENT: NCAT, PERRL, EOMI. Neck: Supple, trachea midline. Cardiovascular: RRR. No m/r/g. Lungs: CTAB. Breathing unlabored Extremities: Normal inspection. No edema. Skin: Warm/dry, normal color. Several scattered wounds on right arm that measure about 2 cm in size with some overlying w[place]sworth crusting no induration or fluctuance surrounding the wounds. Active range motion of upper extremities full. Patient also has a diffuse scattered wounds on lower extremities which are little bit smaller in size no surrounding erythema, induration or fluctuance. Areas are minimally tender to palpation. Neurological: Alert and oriented x4, normal gait. Psychiatric: Affect congruent with mood. Progress Results/Orders Results/Orders Vital Signs 08/16/25 09:51 Temp 97.9 Pulse 97 Resp 18 B/P (MAP) 146/93 Pulse Ox 97 O2 Flow Rate 0 Medical Decision Making Differential Dx:Considerations: Include: Abscess, Cellulitis, Dressing change, Healing wound, Other Additional Comment There is no induration or fluctuance, no evidence that these are abscesses, patient is afebrile without systemic symptoms, outpatient treatment appropriate. The overlying wadsworth crusting over the wounds is consistent with impetigo. Departure Time of Disposition: 10:49 Disposition: 01 HOME / SELF CARE / HOMELESS Impression: Primary Impression: Infected wound Additional Impression: Homelessness Condition: Stable Discharge Instructions: Wound Infection, [id number] Additional Instructions: Antibiotics sent to your pharmacy, follow up with the [facility] to have these rechecked in about three days, if fever, increasing pain, swelling or any other concerning symptoms return to the emergency room. Referrals: NO PRIMARY CARE PROVIDER (PCP) Prescriptions Doxycycline Monohydrate (Doxycycline Monohydrate) 100 Mg Capsule 1 CAP PO Q12H for 10 Days, #20 CAP TAKE WITH FOOD TO DECREASE RISK OF NAUSEA/VOMITING Prov: ROGERS DOYLE 08/16/25 Education Educated: Patient Educated regarding: diagnosis, treatment, need for follow up Signature Scribe Signature: X Attestation: ROGERS LINDO Aug 16, 2025 10:48
[2025-08-16] MEDS ORDERED: DOXY-462 PO (10:50)
[2025-08-16 11:08] VITALS: TEMP 97.9
== END 2025-08-16 11:10 | disposition home or self-care (01) ==
LOC: ER 09:46
DX: L08.9 Local infection of the skin and subcutaneous tissue, unspecified (principal); F32.A Depression, unspecified; F15.90 Other stimulant use, unspecified, uncomplicated; F11.90 Opioid use, unspecified, uncomplicated; Z59.00 Homelessness unspecified
CPT/HCPCS: 99283; J7030

== ENCOUNTER 2025-09-22 15:49 | Emergency (ER) | payer MEDICARE, MEDICAID ==
[~2025-09-22] VITALS: Ht 177.8 cm; Wt 64.5 kg
[2025-09-22 15:50] VITALS: BP 144/99; PULSE 101; RESP 16; TEMP 98.2; O2SAT 98
--- NOTE | 2025-09-22 15:54 | Physician Documentation ---
History of Present Illness ~ Chief Complaint: Wound Stated Complaint: L LEG PAIN Time Seen by MD: 15:53 Primary Medical Doctor: litzy huang [facility] Patient is a very pleasant 60-year-old gentleman that presents to the emergency department for evaluation of wounds on the anterior portion of the lower left extremity. Patient reports that he has had the wounds for several weeks he has been treating them himself he said that he had some improvement but now they have become worse again. Patient denies any fever chills nausea vomiting diarrhea at this time just a little bit of pain associated with the wounds. Patient is a transient gentleman and having a little bit of difficulty keeping the wounds clean at this time. Other symptoms reported at this time. Tetanus within 5 years?: No Medication Reconciliation Allergies: Coded Allergies: niacin (Verified Allergy, Unknown, 08/30/25) PT HAS TOLERATED FOLIC ACID AND THIAMINE 2023 Scheduled Cephalexin*Monohydrate* (Keflex*), 1 CAP PO QID Loperamide HCl (Imodium A-D), 1 TAB PO 5XD Metoprolol Tartrate (Lopressor tablet), 12.5 MG PO BID Multivitamin with Folic Acid (Thera Tablet), 1 EACH PO Q24H Naloxone HCl (Narcan), 1 SPRAYS BOTHNARES ONCE Pantoprazole Sodium (PROTONIX tablet), 40 MG PO DAILY [thiamine tablet], 100 MG PO DAILY Scheduled PRN Ibuprofen (Ibuprofen), 1 TAB PO Q8H PRN for pain Loperamide Hcl/Simethicone (Imodium Ms Relief Caplet), 1 EACH PO BID PRN for diarrhea ONDANSETRON ODT 4mg tablet (Ondansetron Odt), 1 TABLET PO Q6H PRN for nausea/vomiting ONDANSETRON ODT 4mg tablet (Ondansetron Odt), 1 TAB PO Q6H PRN PRN for na usea/vomiting Past Medical History Past Medical History: No Pertinent History, Diabetes, Chronic Pain, MRSA Abscess, Depression, Schizophrenia Past Surgical History: noncontributory Alcohol Use: Heavy Drug Use: methamphetamine, heroin, other Lives with: Alone Lives In: Homeless Occupation: unemployed Review of Systems ROS As stated above in the HPI, otherwise all systems are reviewed and negative. Physical Exam Vital Signs: Temperature: 98.2, Source: Oral, Heart Rate: 101, Respiratory Rate: 16, BP: 144/99, Pulse Oximetry: 98, Weight: 64.500 Oxygen Flow Rate: 0 Physical Exam VITALS: Reviewed and as above. GENERAL: Alert, no apparent distress. HEENT: Normocephalic, atraumatic, PERRL, EOMI, dry mucosa, no erythema RESPIRATORY: Lungs clear, normal breath sounds, no respiratory distress. CHEST: No accessory muscle use, no retractions CV: Regular rate, rhythm, no edema, no murmur, No: JVD GI: Soft, non-tender, bowels sounds present, no rebound, guarding, or rigidity BACK: No CVA tenderness, or swelling MUSCULOSKELETAL No deformities, no edema SKIN: Warm and dry, wounds noted to the lower left extremity during examination. NEURO: Oriented x4, No motor or sensory deficit PSYCH: Normal mood and affect, no agitation Progress Results/Orders Results/Orders Vital Signs 09/22/25 15:50 Temp 98.2 Pulse 101 Resp 16 B/P (MAP) 144/99 Pulse Ox 98 O2 Flow Rate 0 Medical Decision Making Additional information obtaine: other Findings A 60-year-old male presented with several weeks of purulent wounds on the anterior lower left extremity. On exam, wounds demonstrated purulent drainage without evidence of systemic infection (no fever, chills, or hemodynamic instability). No limb-threatening features, necrosis, or signs of deep tissue involvement were noted. The wounds were cleansed and debrided as indicated. The patient received the first dose of doxycycline in the ED, with instructions to continue the course as prescribed. Antibiotic Rationale: Doxycycline was selected for outpatient management due to coverage of common gram-positive organisms, including MRSA, and appropriateness for mild to moderate skin and soft tissue infection in patients with beta-lactam allergy or MRSA risk. The patient will brain picker the remaining doses from the pharmacy and take as directed. Wound Care Instructions: Cleanse wounds daily with mild soap and water; pat dry. Apply a clean, non-adherent dressing; change daily or if soiled. Off-load pressure from the affected limb as much as possible. Elevate the extremity to reduce edema. Acetaminophen or ibuprofen may be used for pain as needed. Follow-Up: Patient is advised to follow up with primary care provider within 35 days for wound reassessment and to monitor response to therapy.Early follow-up is critical to ensure healing and prevent complications. Return Precautions: Return to the ED immediately for any of the following: Worsening redness, swelling, or pain Spreading erythema or streaking New or persistent fever, chills, or systemic symptoms Rapid increase in wound size, necrosis, or foul odor Signs of deep infection (bullae, crepitus, severe pain, or drainage) Inability to care for wound or obtain antibiotics Additional Considerations: If wound fails to improve after 4872 hours of antibiotics, or if there is concern for deeper infection (osteomyelitis, abscess), further evaluation and possible imaging or specialist referral are indicated. Reinforce importance of adherence to antibiotic regimen and wound care. Differential Dx:Considerations: Include: Abscess, Cellulitis, Dressing change, Healing wound, Other Departure Disposition: 01 HOME / SELF CARE / HOMELESS Impression: Primary Impression: Wound Additional Impressions: Wound pain Infection of skin and subcutaneous tissue Condition: Stable Additional Instructions: You are being treated for infected wounds on your lower left leg. You received your first dose of doxycycline (an antibiotic) in the emergency department. 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 Take doxycycline exactly as directed until finished, even if you start to feel better. Do not skip doses. If you have any problems with the medication (rash, severe stomach upset, trouble breathing), stop taking it and seek medical attention. Pain Control: You may use acetaminophen (Tylenol) or ibuprofen as needed for pain. Follow the dosing instructions on the package. Do not take more than the recommended amount. Wound Care: Wash your wounds gently with mild soap and water once daily. Pat dry and cover with a clean, non-stick bandage. Change the bandage every day or if it gets wet or dirty. Elevate your leg when sitting to help reduce swelling. Avoid putting pressure on the wound area. Follow-Up: Schedule an appointment with your primary care provider within 35 days for wound check and to make sure the infection is improving. Return to the Emergency Department Immediately If You Notice: Increasing redness, swelling, or pain around the wound Red streaks spreading from the wound Fever, chills, or feeling generally unwell Pus or foul-smelling drainage that gets worse The wound gets much larger or turns black Trouble moving your leg or severe pain You cannot take your antibiotics or care for your wound Other Important Information: Most wounds start to improve within a few days of starting antibiotics. If your wound is not getting better after 23 days, or if you have any concerns, contact your doctor. Good wound care and taking your antibiotics as prescribed are lewis to healing. If you have any questions about your care, please call your doctor or return to the emergency department. References Referrals: NO PRIMARY CARE PROVIDER (PCP) Prescriptions Doxycycline Hyclate (Doxycycline Hyclate) 100 Mg Capsule 1 CAP PO Q12H for 10 Days, #20 CAP Prov: EILEEN MCCLELLAND 09/22/25 Education Educated: Patient Educated regarding: diagnosis, need for follow up Signature Scribe Signature: A Attestation: Scribed for Eileen Mcclelland by CECE Alegria . 09/22/25 16:15 EILEEN MCCLELLAND Sep 22, 2025 15:54
[2025-09-22] MEDS ORDERED: DOXY-1 PO (16:14)
[2025-09-22] MEDS: DOXYCYCLINE 100MG CAPSULE PO STA (16:45)
== END 2025-09-22 16:48 | disposition home or self-care (01) ==
LOC: ER 15:49
DX: S80.922A Unspecified superficial injury of left lower leg, initial encounter (principal); L08.9 Local infection of the skin and subcutaneous tissue, unspecified; X58.XXXA Exposure to other specified factors, initial encounter; Y93.89 Activity, other specified; Y92.89 Other specified places as the place of occurrence of the external cause; Y99.8 Other external cause status
CPT/HCPCS: 99283

== ENCOUNTER 2025-09-28 22:11 | Emergency (ER) | payer MEDICARE, MEDICAID ==
[~2025-09-28] VITALS: Ht 170.2 cm; Wt 68.2 kg
[~2025-09-28 22:11] MED LIST changes: +DOXY-1 PO
[2025-09-28 22:24] VITALS: BP 145/84; PULSE 80; RESP 16; O2SAT 96
--- NOTE | 2025-09-28 23:21 | Physician Documentation ---
History of Present Illness ~ Chief Complaint: Wound Stated Complaint: LEFT LEG INFECTION Time Seen by MD: 23:19 Primary Medical Doctor: litzy De Los Santos 60-year-old male who presents with concern for infected wounds The patient was seen here in the emergency department recently, was prescribed doxycycline for infected wounds. He returns today, and states that he lost the antibiotics. He is requesting further antibiotics. He tells me he has wounds on his legs and on his back. He says something about a spider bite. He is a limited historian. Denies fevers. He states he does not feel that ill. Tetanus within 5 years?: No Medication Reconciliation Allergies: Coded Allergies: niacin (Verified Allergy, Unknown, 09/28/25) PT HAS TOLERATED FOLIC ACID AND THIAMINE 2023 Scheduled Cephalexin*Monohydrate* (Keflex*), 1 CAP PO QID Doxycycline Hyclate (Doxycycline Hyclate), 1 CAP PO Q12H Doxycycline Hyclate (Doxycycline Hyclate), 1 CAP PO Q12H Loperamide HCl (Imodium A-D), 1 TAB PO 5XD Metoprolol Tartrate (Lopressor tablet), 12.5 MG PO BID Multivitamin with Folic Acid (Thera Tablet), 1 EACH PO Q24H Naloxone HCl (Narcan), 1 SPRAYS BOTHNARES ONCE Pantoprazole Sodium (PROTONIX tablet), 40 MG PO DAILY [thiamine tablet], 100 MG PO DAILY Scheduled PRN Ibuprofen (Ibuprofen), 1 TAB PO Q8H PRN for pain Loperamide Hcl/Simethicone (Imodium Ms Relief Caplet), 1 EACH PO BID PRN for diarrhea ONDANSETRON ODT 4mg tablet (Ondansetron Odt), 1 TABLET PO Q6H PRN for nausea/vomiting ONDANSETRON ODT 4mg tablet (Ondansetron Odt), 1 TAB PO Q6H PRN PRN for nausea/vomiting Past Medical History Past Medical History: No Pertinent History, Diabetes, Chronic Pain, MRSA Abscess, Depression, Schizophrenia Past Surgical History: noncontributory Alcohol Use: Heavy Drug Use: methamphetamine, heroin, other Lives with: Alone Lives In: Homeless Occupation: unemployed Review of Systems Constitutional: Denies: fever Integumentary: Reports: rash, wound(s) Physical Exam Vital Signs: Temperature: 97.8, Source: Oral, Heart Rate: 80, Respiratory Rate: 16, BP: 145/84, Pulse Oximetry: 96, Weight: 68.200 Physical Exam General: This is a disheveled middle-aged man who is lying on his stomach sleeping when I enter the room HEENT: Atraumatic, oropharynx is moist Heart: Regular rate and rhythm, normal-appearing peripheral perfusion Lungs: normal work of breathing, speaks in full sentences Skin: The patient has scabs in various locations on his legs and upper back, with mild surrounding erythema, no purulent drainage, no fluctuance Neuro: Alert and oriented Psychiatric: Appears tired and slightly sedated Progress Results/Orders Results/Orders Completed Orders - KRISHNA SHEA MD Doxycycline 100mg Capsule (Vibramycin 10 (09/28/25 23:25) Vital Signs 09/28/25 22:24 Temp 97.8 Pulse 80 Resp 16 B/P (MAP) 145/84 Pulse Ox 96 Medical Decision Making Additional information obtaine: old records Findings Reviewed previous ER visit Differential Dx:Considerations: Include: Abscess, Cellulitis, Healing wound Additional Comment The patient presents with concern for infection of multiple wounds in his body. On exam he does have multiple scabs with surrounding cellulitis. No evidence of abscess requiring incision and drainage. He has no evidence of sepsis or more dangerous systemic infection. He will be treated again with doxycycline. He did not have any other acute concerns, and so he will be discharged with return precautions. Departure Time of Disposition: 23:25 Disposition: 01 HOME / SELF CARE / HOMELESS Impression: Primary Impression: Wound cellulitis Condition: Stable Discharge Instructions: Cellulitis, Adult Referrals: NO PRIMARY CARE PROVIDER (PCP) Prescriptions Doxycycline Hyclate (Doxycycline Hyclate) 100 Mg Capsule 1 CAP PO Q12H for 10 Days, #20 CAP Prov: KRISHNA SHEA MD 09/28/25 Education Educated: Patient Educated regarding: diagnosis, treatment, need for follow up Signature Scribe Signature: efrain Attestation: KRISHNA Engle MD Sep 28, 2025 23:21
[2025-09-28] MEDS ORDERED: DOXY-224 PO (23:26)
[2025-09-28 23:40] VITALS: TEMP 97.8
[2025-09-28] MEDS: DOXYCYCLINE 100MG CAPSULE PO STA (23:44)
== END 2025-09-28 23:48 | disposition home or self-care (01) ==
LOC: ER 22:12
DX: L03.312 Cellulitis of back [any part except buttock and flank] (principal); G89.29 Other chronic pain; F32.A Depression, unspecified; F20.9 Schizophrenia, unspecified; F15.90 Other stimulant use, unspecified, uncomplicated; F11.90 Opioid use, unspecified, uncomplicated; F19.90 Other psychoactive substance use, unspecified, uncomplicated; Z56.0 Unemployment, unspecified; Z59.00 Homelessness unspecified; Z88.8 Allergy status to other drugs, medicaments and biological substances; Z79.899 Other long term (current) drug therapy; Z60.2 Problems related to living alone
CPT/HCPCS: 99283

== ENCOUNTER 2025-11-22 04:17 | Emergency (ER) | payer MEDICARE, MEDICAID ==
[~2025-11-22] VITALS: Ht 172.7 cm; Wt 80.0 kg
[~2025-11-22 04:17] MED LIST changes: -DOXY-1 PO; +SULF1TAB49 PO
[2025-11-22 04:22] VITALS: TEMP 98
--- NOTE | 2025-11-22 08:44 | ELECTROCARDIOGRAPH REPORT ---
[facility] Test Date: 2025-11-22 Test Time: 08:43:37 Pat Name: CINTHIA APONTE Department: [facility]- Patient ID: [facility]-[id number] Room: Gender: M Ammonia Still Operator: : 1965 Requested By: POLA ARRIAGA Order Number: [id number] Reading MD: Dr. Nawaf Singletary Measurements Intervals [place] Rate: 97 P: 75 [place]: 165 QRS: 79 QRSD: 96 T: 68 QT: 397 QTc: 505 Interpretive Statements Sinus rhythm Biatrial enlargement Prolonged QT interval Electronically Signed On 11-22-2025 18:11:[address] Nawaf Singletary Please click the below link to view image of tracing.
[2025-11-22 09:27] LABS: MEAN PLATELET VOLUME 7.3 FL (7.4-10.4); RED CELL DISTRIBUTION WIDTH 14.3 % (11.5-14.5)
[2025-11-22 09:44] LABS: CREATININE 0.94 MG/DL (0.60-1.10); ETHANOL < 10 MG/DL (<10); TOTAL CARBON DIOXIDE 27.2 MMOL/L (24-32); eCRCL 79 ML/MIN; eGFR 81 ML/MIN
--- NOTE | 2025-11-22 09:48 | RADIOLOGY REPORT ---
CT CT HEAD INDICATION: aloc EXAM DATE: 11/22/2025 09:11 AM COMPARISON: CT CT HEAD on DOS: 04/05/24 TECHNIQUE: CT of the head without intravenous contrast. RADIATION DOSE: CTDIvol: 59 mGy, DLP: 1091 mGy*cm FINDINGS: There is no intracranial hemorrhage. There is no extra-axial fluid, mass, mass effect or midline shift. The ventricles are midline and normal in size. Basilar cisterns are patent. There are mild periventricular and subcortical white matter chronic microvascular ischemic changes The mastoids are well pneumatized. Mucosal thickening of the ethmoids, bilateral maxillary sinuses.. Imaged portion of the orbits are unremarkable. IMPRESSION: No intracranial hemorrhage or mass effect. Mild chronic microvascular ischemic changes.
[2025-11-22 12:04] LABS: URINE AMPHETAMINE SCREEN POSITIVE (Neg); URINE BARBITUATE SCREEN NEGATIVE (Neg); URINE BENZODIAZEPINES SCREEN NEGATIVE (Neg); URINE CANNABINOID SCREEN NEGATIVE (Neg); URINE COCAINE SCREEN NEGATIVE (Neg); URINE METHADONE SCREEN NEGATIVE (Neg); URINE OPIATE SCREEN NEGATIVE (Neg); URINE PHENCYCLIDINE SCREEN NEGATIVE (Neg)
[2025-11-22] MEDS: normal saline 1000ML IV soln IVB ONE (12:55)
[2025-11-22] MEDS: ondansetron/PF 4mg/2ml inj IV ONE (12:56)
[2025-11-22 13:06] VITALS: BP 50/76; PULSE 100; RESP 12; O2SAT 99
[2025-11-22] MEDS: normal saline 1000ml 1,000 ML IV ONE (13:06)
--- NOTE | 2025-11-22 15:18 | Physician Documentation ---
History of Present Illness ~ Chief Complaint: Foot pain Stated Complaint: MED REQUEST Time Seen by MD: 06:05 Primary Medical Doctor: litzy De Los Santos This is a 60-year-old male past history of drug use and EtOH abuse coming in with bilateral foot discomfort after getting his feet wet and being prolonged in boots. Patient is unkempt and states he is homeless at this time. He has no other complaints at this time denies drug alcohol use. He denies chest pain shortness of breath nausea vomiting fever chills. Denies any motor or sensory dysfunction ambulating well throughout the emergency department eating and drinking appropriately. No other symptoms at this time. Tetanus witin 5 years: No Medication Reconciliation Allergies: Coded Allergies: niacin (Verified Allergy, Unknown, 11/13/25) PT HAS TOLERATED FOLIC ACID AND THIAMINE 2023 Scheduled Cephalexin*Monohydrate* (Keflex*), 1 CAP PO QID Cephalexin*Monohydrate* (Keflex*), 1 CAP PO TID Loperamide HCl (Imodium A-D), 1 TAB PO 5XD Metoprolol Tartrate (Lopressor tablet), 12.5 MG PO BID Multivitamin with Folic Acid (Thera Tablet), 1 EACH PO Q24H Naloxone HCl (Narcan), 1 SPRAYS BOTHNARES ONCE Pantoprazole Sodium (PROTONIX tablet), 40 MG PO DAILY Sulfamethoxazole/Trimethoprim (Bactrim Ds Tablet), 1 TAB PO Q12H [thiamine tablet], 100 MG PO DAILY Scheduled PRN Ibuprofen (Ibuprofen), 1 TAB PO Q8H PRN for pain Loperamide Hcl/Simethicone (Imodium Ms Relief Caplet), 1 EACH PO BID PRN for diarrhea ONDANSETRON ODT 4mg tablet (Ondansetron Odt), 1 TABLET PO Q6H PRN for nausea/vomiting ONDANSETRON ODT 4mg tablet (Ondansetron Odt), 1 TAB PO Q6H PRN PRN for nausea/vomiting Past Medical History Past Medical History: No Pertinent History, Diabetes, Chronic Pain, MRSA Abscess, Depression, Schizophrenia Past Surgical History: noncontributory Alcohol Use: Heavy Drug Use: methamphetamine, heroin, other Lives with: Alone Lives In: Homeless Occupation: unemployed Review of Systems All Other Systems at this time: Reviewed and Negative ROS Constitutional: Negative for fever and chills. HENT: Negative for sore throat and rhinorrhea. Eyes: Negative for pain and redness. Respiratory: Negative for cough and SOB. Cardiovascular: Negative for chest pain and palpitations. Gastrointestinal: Negative for nausea and vomiting. . Genitourinary: Negative for dysuria and hematuria. Musculoskeletal: Positive for foot pain. Negative for acute back pain and acute neck pain. Skin: Negative for rash and pruritus. Neurological: Negative for acute numbness or weakness. Physical Exam Vital Signs: Temperature: 98.0, Source: Temporal, Heart Rate: 100, Respiratory Rate: 12, BP: 50/76, Pulse Oximetry: 99, Weight: 80.000 Oxygen Flow Rate: 0 Physical Exam General: Awake. no acute distress. Verbal. Appears disheveled and malodorous. Head: No trauma Eyes: Nl lids Nl conjunctiva. No eye discharge ENT: Mucous membranes Nl. Lips Nl. No lesions Neck: Supple. No JVD. No visible mass Resp: Rate normal. No respiratory distress. No retractions. Normal air flow. No wheezes, rhonchi, or rales. Heart: Regular rhythm. No murmur. No rub Abdomen: Soft. Nontender. No guarding. No rebound Musc/skeletal: Patient walking while in the ED. Bilateral trench foot. No calf or popliteal tenderness. Dekalb criteria negative. Skin: No diabetic foot ulcers. No rash. No petechiae. Not diaphoretic Neuro: Alert, oriented. Normal speech Progress Results/Orders Results/Orders Orders - HAN ARRIAGA MD Electrocardiogram (11/22/25 08:13) Accucheck (11/22/25 08:13) Ct Head (11/22/25 08:13) Completed Orders - HAN ARRIAGA MD Electrocardiogram (11/22/25 08:13) Cbc/Diff (11/22/25 08:13) Ct Head (11/22/25 08:13) Ethanol (11/22/25 08:13) Drug Screen, Urine (11/22/25 08:13) BMP (11/22/25 08:13) Hs Troponin I W Calculations (11/22/25 08:13) Liver Panel (11/22/25 08:20) Thiamine Tablet (Thiamine Tablet) (11/22/25 08:30) Folic Acid Tablet (Folic Acid Tablet) (11/22/25 08:30) Naloxone 0.4 Mg/Ml Inj (Narcan 0.4mg/Ml (11/22/25 12:20) Normal Saline 1000ml (0.9% Sodium Chlori (11/22/25 12:25) Ondansetron Inj. (Zofran 4mg/2ml Vial) (11/22/25 12:50) Naloxone 0.4 Mg/Ml Inj (Narcan 0.4mg/Ml (11/22/25 12:50) Normal Saline 1000ml (0.9% Sodium Chlori (11/22/25 13:05) Vital Signs 11/22/25 11/22/25 11/22/25 11/22/25 04:22 07:40 11:10 13:02 Temp 98.0 Pulse 100 101 99 100 Resp 16 17 17 12 B/P (MAP) 164/97 169/105 (126) 178/102 (127) 150/76 Pulse Ox 97 99 99 97 O2 Flow Rate 0 11/22/25 13:06 Pulse 100 Resp 12 B/P (MAP) 50/76 (67) Pulse Ox 99 Laboratory Tests Test 11/22/25 09:05 11/22/25 11:41 White Blood Count 8.0 Red Blood Count 3.73 L Hemoglobin 10.2 L Hematocrit 30.9 L Mean Corpuscular Volume 82.8 Mean Corpuscular Hemoglobin 27.4 Mean Corpuscular Hemoglobin Concent 33.1 Red Cell Distribution Width 14.3 Platelet Count 355 Mean Platelet Volume 7.3 L Neutrophils (%) (Auto) 62.8 Lymphocytes (%) (Auto) 19.0 L Monocytes (%) (Auto) 10.1 Eosinophils (%) (Auto) 7.1 H Basophils (%) (Auto) 1.0 Neutrophils # (Auto) 5.0 Lymphocytes # (Auto) 1.5 Monocytes # (Auto) 0.8 Eosinophils # (Auto) 0.6 Basophils # (Auto) 0.1 CBC Comment Sodium Level 143 Potassium Level 3.4 L Chloride Level 109 H Carbon Dioxide Level 27.2 Anion Gap 7 L Blood Urea Nitrogen 32 H Creatinine 0.94 Estimated GFR/1.73 m2 81 BUN/Creatinine Ratio 34.0 H Glucose Level 99 Calcium Level 8.1 L Total Bilirubin 0.2 Direct Bilirubin < 0.1 Aspartate Amino Transf (AST/SGOT) 27 Alanine Aminotransferase (ALT/SGPT) 21 Alkaline Phosphatase 63 Troponin I High Sensitivity 19 Total Protein 6.8 Albumin 2.8 L Globulin 4.0 Albumin/Globulin Ratio 0.7 L Chemistry Comments Ethyl Alcohol Level < 10 Urine Opiates Screen Negative Urine Methadone Screen Negative Urine Fentanyl Screen Positive H Urine Barbiturates Screen Negative Urine Phencyclidine Screen Negative Urine Amphetamines Screen Positive Urine Benzodiazepines Screen Negative Urine Cocaine Screen Negative Urine Cannabinoids Screen Negative Drug Screen Comment EKG/XRAY/CT/US/VASC/MRI CT : Interpreted By: radiologist CT: head Impression CT CT HEAD INDICATION: aloc EXAM DATE: 11/22/2025 09:11 AM COMPARISON: CT CT HEAD on DOS: 04/05/24 TECHNIQUE: CT of the head without intravenous contrast. RADIATION DOSE: CTDIvol: 59 mGy, DLP: 1091 mGy*cm FINDINGS: There is no intracranial hemorrhage. There is no extra-axial fluid, mass, mass effect or midline shift. The ventricles are midline and normal in size. Basilar cisterns are patent. There are mild periventricular and subcortical white matter chronic microvascular ischemic changes The mastoids are well pneumatized. Mucosal thickening of the ethmoids, bilateral maxillary sinuses.. Imaged portion of the orbits are unremarkable. IMPRESSION: No intracranial hemorrhage or mass effect. Mild chronic microvascular ischemic changes. Electronically Signed by:KAMERON WEISS MD Date & Time: 11/22/25 0945 Medical Decision Making Additional information obtaine: old records, N/A Findings MDM: Patient was given 2 L of normal saline, thiamine, folic acid and .04 IM Narcan in which he responded well to. He refused social worker palliative care and Suboxone. Limited: (2 points from category 1 or one discussion with independent historian). Moderate: one of the following (3 points from category 1, or independent interpretations of tests performed by another physician/QHP: (ct,ecg,rad alisa,rhythm strip,or comparing xray to prior), or discussion of tests or management with other professionals (not including [facility] ER doc/PA or family members.) High: (2 of 3 from : category 1 (3 points), independent interpretation of tests performed by another physician/QHP, and discussion of tests or management). Prior ER notes reviewed: Category 1: Number of Tests ordered or reviewed: >3 Number of Independent Historians: 0 Non [facility] ER notes reviewed: 1. Triage notes 2. Nursing notes 3. Category 2: I independently interpreted the: [] Category 3: Discussion with other professionals: [] SOCIAL DETERMINANTS OF HEALTH Problems related to: ( )Challenges with access to Primary Care or Outpatient Speciality Care ( )Psychosocial circumstances such as mental health issues ( )Social environment: such as violence or substance abuse (X)Housing and economic circumstances: such as homelessness ( )Employment and unemployment: such as recently loss of employment ( )Occupational exposures or injuries: ( )Accessing ED outside of normal PCP hours ( )Language barrier: ( )Primary support group, including family circumstances: Prescription Management: Rx strength meds given in ED: [] New Prescriptions: [] ( )I have reviewed the patient's medications and I do not recommend any changes at this time. (Applies only if checked) Comorbid conditions include but are not limited to: [Schizophrenia, alcohol abuse, polysubstance abuse, homelessness] Testing or interventions considered: [Considered x-ray of the foot however nontender Dekalb criteria negative] Differential includes but is not limited to: [Trench foot, gangrene, frostbite, fracture, fungal infection, cellulitis] General Diff Dx:Considerations: Include: Other Knee Diff Dx:Considerations: Include: Other Ankle Diff Dx:Considerations: Include: Other Foot Diff Dx:Considerations: Include: Other Toe Diff Dx:Considerations: Include: Other Additional Comment See MDM Departure Disposition: 01 HOME / SELF CARE / HOMELESS Impression: Primary Impression: Foot pain Additional Impression: Homelessness Condition: Stable Discharge Instructions: Foot Pain Referrals: NO PRIMARY CARE PROVIDER (PCP) Education Educated: Patient Educated regarding: diagnosis, treatment, prognosis, need for follow up Signature Scribe Signature: Scribed for Han Arriaga MD by Kale Mackey . 11/23/25 23:15 Attestation: Scribed for Han Arriaga MD by Han Arriaga . 11/24/25 00:02 HAN ARRIAGA MD Nov 22, 2025 15:18 KALE GRANADOS Nov 23, 2025 23:09
[2025-11-26] MEDS ORDERED: SULF1TAB49 PO (11:48)
== END 2025-11-22 15:43 | disposition home or self-care (01) ==
LOC: ER 04:17
DX: M79.672 Pain in left foot (principal); M79.671 Pain in right foot; E11.9 Type 2 diabetes mellitus without complications; F15.90 Other stimulant use, unspecified, uncomplicated; F11.90 Opioid use, unspecified, uncomplicated; F19.90 Other psychoactive substance use, unspecified, uncomplicated; G89.29 Other chronic pain; F32.A Depression, unspecified; F20.9 Schizophrenia, unspecified; Z88.8 Allergy status to other drugs, medicaments and biological substances; Z59.00 Homelessness unspecified; Z56.0 Unemployment, unspecified; Z60.2 Problems related to living alone
CPT/HCPCS: 36415; 70450; 80048; 80076; 80305; 84484; 85025; 93005; 96361; 96372; 96374; 99285; G0480; J2312; J2405; J7030; 80320